=== PATIENT | female | born 1935 | race Caucasian/White ===

== ENCOUNTER 2017-03-16 16:15 | Inpatient (IN) | payer MEDICARE, BC ==
[~2017-03-16] VITALS: Ht 154.9 cm; Wt 71.1 kg
[~2017-03-16 16:15] MED LIST: BAYER CHEWABLE81 MG PO; BETAPACE 80 MG80 MG PO; BROMDAY1.7 ML RIGHT EYE; COLCRYS0.6 MG PO; CORDARONE200 MG PO; COUMADIN5 MG PO; ELIQUIS2.5 MG PO; ESTRACE1 MG PO; EXELON1 PATCH .1 TRANSDERM; K-DUR20 MEQ PO; K-TAB10 MEQ PO; LASIX20 MG PO; METOLAZONE2.5 MG PO; MYSOLINE 50 MG50 MG PO; PROTONIX40 MG PO; RESTORIL15 MG PO; STERAPRED DS 1210 MG PO; SYNTHROID50 MCG PO; SYNTHROID75 MCG PO; ULTRACET TABLET1 TAB PO; VITAMIN D31000 UNI2 PO; XANAX1 MG PO; ZESTORETIC 20-1 EACH PO; ZOLOFT25 MG PO; ZYLOPRIM100 MG; ZYLOPRIM300 MG PO
--- NOTE | 2017-03-16 16:41 | NUR ---
ARRIVE TO ROOM VIA WHEELCHAIR FROM 'S OFFICE ACCOMPANIED BY STAFF AND SPOUSE. ALERT AND ORIENTED X4. SPOUSE PULLS ASIDE TO INFORM OF PATIENT HAVING BEGINNING STAGES OF DEMENTIA. TRANSFER FROM WHEELCHAIR TO BED MAX ASSIST. GENERALIZED WEAKNESS. IV SITED LT FA 22G BY VASCULAR NURSE SUCCESSFUL X1 ATTEMPT. SCDs ON. CONTINUE ADMISSION PROCESS. DENIES SOB. CHRONIC BACK PAIN. BED LOCKED AND LOW. CALL LIGHT IN REACH. TWO SIDERAILS UP.
[2017-03-16] MEDS ORDERED: ZYLOPRIM300 MG PO (16:48)
[2017-03-16] MEDS ORDERED: PRINIVIL20 MG PO (16:48)
[2017-03-16] MEDS ORDERED: ZOLOFT50 MG PO (16:49)
[2017-03-16] MEDS ORDERED: VITAMIN B-121000 MCG PO (16:49)
[2017-03-16] MEDS ORDERED: VITAMIN D31000 UNI2 PO (16:50)
[2017-03-16] MEDS ORDERED: IPRATROPIUM BR42 MCG NASAL (16:50)
[2017-03-16] MEDS ORDERED: ULTRACET TABLET1 TAB PO (16:51)
[2017-03-16 18:13] VITALS: BP 183/53; BMI 23.3
[2017-03-16 20:00] VITALS: BP 169/63
--- NOTE | 2017-03-16 20:09 | NUR ---
RESUMED CARE OF PT, LYING IN BED WITH EYES CLOSED RESPIRATIONS EVEN AND UNLABORED ON ROOM AIR. LEFT FOREARM INFUSING NS @ KVO. CALL LIGHT IN REACH. NO NEEDS VOICED AT THIS TIME. WILL CONTINUE TO MONTIOR. SEE NURSE ASSESSMENT.
[2017-03-17] VITALS: BP 128/48
--- NOTE | 2017-03-17 04:32 | NUR ---
LYING IN BED RESPIRATIONS EVEN AND UNLABORED. BED ALARM ON. WILL CONTINUE TO MONTIOR.
[2017-03-17 05:50] LABS: BASOPHILS 0.3 % (0-2); EOSINOPHILS 1.9 % (0-7); HEMOGLOBIN 11.1 g/dL (12-16); IMMATURE GRANULOCYTES 0.4 % (0-5); LYMPHOCYTES 32.9 % (15-50); MCH 26.9 pg (26.0-34.0); MCHC 31.7 g/dL (31.0-37.0); MCV 84.7 fL (80.0-100.0); MEAN PLATELET VOLUME 10.4 fL (7.4-10.4); MONOCYTES 17.4 % (2-11); NEUTROPHILS 47.1 % (40-80); PLATELET COUNT 308 10x3/uL (130-400); RBC 4.13 10x6/uL (4.00-5.40); RDW 19.3 % (11.5-14.5); WBC 6.8 10x3/uL (4.8-10.8)
[2017-03-17 06:11] LABS: ANION GAP 17.3 mmol/L (8-16); CALCIUM 8.3 mg/dL (8.5-10.1); CARBON DIOXIDE 20.4 mmol/L (21.0-32.0); CREATININE - SERUM 1.4 mg/dL (0.6-1.3); POTASSIUM - SERUM 4.7 mmol/L (3.5-5.1)
--- NOTE | 2017-03-17 06:46 | NUR ---
NO CHANGES FROM PREVIOUS ASSESSMENT, CALL LIGHT IN REACH. WILL CONTINUE WITH PLAN OF CARE.
[2017-03-17 08:00] VITALS: BP 153/66
[2017-03-17 12:45] VITALS: Ht 154.9 cm; Wt 71.1 kg
[2017-03-17 13:02] LABS: APPEARANCE HAZY (CLEAR); BILIRUBIN NEGATIVE (NEGATIVE); COLOR YELLOW (YELLOW); GLUCOSE NEGATIVE (NEGATIVE); KETONE NEGATIVE (NEGATIVE); LEUKOCYTE ESTERASE 1+ (NEGATIVE); NITRITE NEGATIVE (NEGATIVE); PROTEIN 2+ mg/dL (NEGATIVE); UROBILINOGEN NORMAL (NORMAL)
[2017-03-17 13:03] LABS: BACTERIA MODERATE /hpf (NONE SEEN); RED CELLS - URINE 0-5 /hpf (0-5)
[2017-03-17 13:04] LABS: HYALINE CAST OCC /lpf (NONE SEEN); MUCUS <1+ /lpf (NONE SEEN)
[2017-03-17 13:26] VITALS: BP 174/53
[2017-03-17 16:00] VITALS: BP 109/73
--- NOTE | 2017-03-17 16:15 | NUR ---
Patient Name: JARRELL HARRELL Admission Status: Urgent Accout number: [id number] Admission Date: 03-17-2017 : 1935 Admission Diagnosis: Attending: TIMI Current LOS: 1 Anticipated DC Date: Planned Disposition: Inpatient Rehab Primary Insurance: MEDICARE A & B PLANNED EXTERNAL PROVIDER: [facility] Discharge Planning Comments: * Is the patient Alert and Oriented? No 0 * How many steps to enter\exit or inside your home? NONE 0 * PCP DR. HAIR 0 * Pharm[facility] * Preadmission Environment Home with Family 0 * Partial ADLs (Assistance needed) Medication Management 0 * Equipment Cane Other Rolling Walker 0 * Other Equipment BUILT IN SHOWER CHAIR [facility] OR [facility] 0 * List name and contact numbers for known caregivers / representatives who currently or will assist patient after discharge: DEIDRE MARIA, SPOUSE, 0 * Community resources currently utilized Home Health 0 * Please name any agencies selected above. [facility] 0 * Additional services required to return to the preadmission environment? No 0 * Can the patient safely return to the preadmission environment? Yes 0 * Has this patient been hospitalized within the prior 30 days at any hospital? No 0 CM RECEIVED ORDER FOR INPATIENT OR SKILLED REHAB PLACEMENT. CM MET WITH PT AND SPOUSE IN ROOM TO DISCUSS DISCHARGE PLANNING AND NEEDS. PT REPORTS LIVING AT HOME INDEPENDENTLY WITH HER SPOUSE. PT HAS A CANE, WALKER AND BUILT IN SHOWER CHAIR. PT'S SPOUSE IS LOOKING FOR CONTRACTOR OR PROVIDER TO INSTALL GRAB BARS IN THE SHOWER. PT HAS HOME HEALTH WITH [facility] FOR NURSING AND PHYSICAL THERAPY. CM DISCUSSED AVAILABILITY OF HOME HEALTH, REHAB SERVICES AND MEDICAL EQUIPMENT. PT INITALLY REPORTS SHE DOES NOT THINK SHE CAN TOLERATE THREE HOURS OF PROGRESSIVE THERAPY PER DAY BUT IS WILLING FOR REHAB SERVICES. PT'S SPOUSE THIKS PT CAN TOLERATE THREE HOURS OF PROGRESSIVE THERAPY PER DAY AND WOULD LIKE HER TO BE CONSIDERED FOR INPATIENT REHAB AT [facility], IF DENIED, HIS SECOND CHOICE IS [facility] FOR CUSTODIAL REHAB. SPOUSE TO PICK PT UP FOR DISCHARGE HOME AFTER REHAB. ORDER FOR INPATIENT REHAB PRESCREEN OBTAINED. CM FAXED REFERRAL TO [facility] FOR REHAB EVALUATION, . CM WAITING RESULTS OF INPATIENT REHAB PRESCREENING AND ADMISSION DETERMINATION FROM [facility]. Sales Contract Administrator: Umair Cosby
--- NOTE | 2017-03-17 17:03 | NUR ---
Rehab Note- Acute Rehab Prescreen order received. Spoke with the patient and her in the patient's room. The patient and are wanting to come to [facility] IRF unit when medically stable and ready for discharge from the acute hospital. Will follow the patient at this time. Thank you for this referral! Norah Adams RN Clinical Liaison, [facility] Rehab
--- NOTE | 2017-03-17 18:40 | NUR ---
ALERT AND ORIENTED X4. NO CHANGE. PREPARE SHIFT CHANGE REPORT. DENIES ANY NEEDS. CONTINUE PLAN OF CARE AND SAFETY PRECAUTIONS.
--- NOTE | 2017-03-17 19:25 | NUR ---
RECEIVED REPORT. PT ASKING FOR BED TO BE LOWERED AND LIGHT BE TURNED OFF, BED IS LOW, SRX2, CALL LIGHT IN REACH, WILL CONTINUE PLAN OF CARE
[2017-03-17 20:00] VITALS: BP 151/58
[2017-03-18 01:17] VITALS: BP 156/50
--- NOTE | 2017-03-18 02:57 | NUR ---
REST IN BED QUIETLY, EYE CLOSE, BED LOW, CALL LIGHT WITHIN REACH.
[2017-03-18 05:11] LABS: BASOPHILS 0.3 % (0-2); EOSINOPHILS 1.7 % (0-7); HEMATOCRIT 37.6 % (36.0-48.0); HEMOGLOBIN 12.1 g/dL (12-16); IMMATURE GRANULOCYTES 0.4 % (0-5); LYMPHOCYTES 30.7 % (15-50); MCH 27.6 pg (26.0-34.0); MCHC 32.2 g/dL (31.0-37.0); MCV 85.6 fL (80.0-100.0); MEAN PLATELET VOLUME 10.1 fL (7.4-10.4); MONOCYTES 15.4 % (2-11); NEUTROPHILS 51.5 % (40-80); PLATELET COUNT 327 10x3/uL (130-400); RBC 4.39 10x6/uL (4.00-5.40); RDW 19.5 % (11.5-14.5); WBC 6.9 10x3/uL (4.8-10.8)
[2017-03-18 05:40] LABS: ANION GAP 18.5 mmol/L (8-16); CALCIUM 8.5 mg/dL (8.5-10.1); CARBON DIOXIDE 20.8 mmol/L (21.0-32.0); CREATININE - SERUM 1.4 mg/dL (0.6-1.3); POTASSIUM - SERUM 4.3 mmol/L (3.5-5.1)
[2017-03-18 06:28] VITALS: BP 149/51
[2017-03-18 08:00] VITALS: BP 157/45
--- NOTE | 2017-03-18 10:33 | NUR ---
RECEIVED A CALL FROM KANNAN AT [facility]. SHE STATED THAT THEY WOULD BE SENDING SOMEONE OUT TO LOOK AT THE PATIENT AND THEN SHE WILL GET BACK ON ME TO WHETHER THEY CAN ACCEPT HER OR NOT.
--- NOTE | 2017-03-18 11:00 | NUR ---
ALERT AND ORIENTED X4. RESTING IN BED. VOMITING IN BAG. CALL FOR ZOFRAN ORDER. FAMILY AT BEDSIDE. LINEN AND SOILED GOWN CHANGE. ADMINISTER ZOFRAN 4MG IV ORDERED. DENIES SOB. INITIATE PAIN MANAGEMENT ORDERED. BED LOCKED AND LOW. CALL LIGHT IN REACH. TWO SIDERAILS UP. BED ALARM ON. CONTINUE PLAN OF CARE. NO SCDs. TAKES ELIQUIS.
--- NOTE | 2017-03-18 11:11 | NUR ---
RECEIVED CALL FROM [facility] IN INPATIENT REHAB. THE PATIENT HAS BEEN ACCEPTED WHEN THE DOCTOR IS READY TO SEND HER. SHE STATED THAT THEY COULD CONTINUE TO GIVE HER IV ANTIBIOTICS IN REHAB. INQUIRED ABOUT DISCHARGE PLAN. EXPLAINED I WOULD TALK WITH THE DOCTOR AND LET HER KNOW. CALL PLACED TO DR HAIR'S OFFICE. SPOKE WITH ANDREW DESOUZA. SHE WILL TALK IT OVER WITH DR HAIR AND CALL ME BACK. WILL AWAIT RETURN CALL.
--- NOTE | 2017-03-18 12:27 | NUR ---
RECEIVED RETURN CALL FROM LYLY AT DR HAIR'S OFFICE. PER HER, DR HAIR WANTS TO WAIT UNTIL PATIENTS CULTURE RESULTS ARE BACK BEFORE HE DISCHARGES TO REHAB. WE ARE LOOKING AT ANOTHER 2 DAYS OR SO. THIS HAS BEEN EXPLAINED TO THE PATIENT. RECEIVED CALL FROM [facility] IN INPATIENT REHAB. THE PATIENT HAS BEEN ACCEPTED
[2017-03-18 14:05] VITALS: BP 155/46
--- NOTE | 2017-03-18 14:24 | NUR ---
RECEIVED A CALL FROM KANNAN AT [facility], SHE STATED THE PATIENT HAS BEEN ACCEPTED.. EXPLAINED THAT THE PATIENT WAS ACCEPTED TO INPATIENT REHAB AND THEY WOULD LIKE TO GO THERE FIRST AND IF SHE CANNOT TOLERATE IT OR IF SHE NEEDS ADDITIONAL THERAPY AFTER INPATIENT, THE FAMILY WAS WANTING TO GO THERE. SHE STATED THAT WOULD BE FINE. THAT ALL WE WOULD NEED TO DO IS GET THEM AN UPDATE ON THE PATIENT. THANKED HER FOR HER TIME.
[2017-03-18 16:00] VITALS: BP 101/32
[2017-03-18] MEDS ORDERED: LEVOTHYROXINE75 MCG PO (16:24)
[2017-03-18 21:40] VITALS: BP 99/40
--- NOTE | 2017-03-19 01:09 | NUR ---
[place] AL[place] FLOORS INSTALLER AT BEDSIDE TO OBTAIN VITALS, CALL LIGHT IN REACH. WILL CONTINUE WITH PLAN OF CARE.
[2017-03-19 01:21] VITALS: BP 127/48
[2017-03-19 04:47] VITALS: BP 117/41
[2017-03-19 06:00] LABS: BASOPHILS 0.1 % (0-2); EOSINOPHILS 1.5 % (0-7); HEMATOCRIT 34.9 % (36.0-48.0); HEMOGLOBIN 11.1 g/dL (12-16); IMMATURE GRANULOCYTES 0.6 % (0-5); LYMPHOCYTES 29.4 % (15-50); MCH 27.1 pg (26.0-34.0); MCHC 31.8 g/dL (31.0-37.0); MCV 85.1 fL (80.0-100.0); MEAN PLATELET VOLUME 10.1 fL (7.4-10.4); MONOCYTES 17.5 % (2-11); NEUTROPHILS 50.9 % (40-80); PLATELET COUNT 277 10x3/uL (130-400); RDW 19.5 % (11.5-14.5)
[2017-03-19 06:16] LABS: ANION GAP 17.3 mmol/L (8-16); CALCIUM 7.9 mg/dL (8.5-10.1); CREATININE - SERUM 1.7 mg/dL (0.6-1.3); POTASSIUM - SERUM 4.3 mmol/L (3.5-5.1)
[2017-03-19 08:40] VITALS: BP 120/47
--- NOTE | 2017-03-19 14:29 | NUR ---
PATIENT HAS WALKED IN HALLWAY SOME WITH P.T. UP IN CHAIR.
[2017-03-19 14:32] VITALS: BP 121/41
--- NOTE | 2017-03-19 19:08 | NUR ---
PT RECEIEVED RESTING QUIETLY IN BED AAOX3. ASSESSMENT COMPLETED PER FLOW SHEET AT THIS TIME. PT REQUESTS ICE WATER AT THIS TIME. DENIES OTHER NEEDS. BED LOW. PHONE AND CALL LIGHT IN REACH. SRX2.
[2017-03-19 20:24] VITALS: BP 101/40
--- NOTE | 2017-03-19 22:34 | NUR ---
PM MEDS GIVEN AT THIS TIME. PT REQUESTS CRACKERS. DENIES OTHER NEEDS. BED LOW. PHONE AND CALL LIGHT IN REACH. SRX2.
--- NOTE | 2017-03-20 00:15 | NUR ---
PT RESTING QUIETLY AT THIS TIME WITH EYES CLOSED. AROUSED EASILY. DENIES NEEDS. BED LOW. PHONE AND CALL LIGHT IN REACH. SRX2.
[2017-03-20 01:28] VITALS: BP 128/62
--- NOTE | 2017-03-20 02:03 | NUR ---
PT RESTING QUIETLY AT THIS TIME WITH EYES CLOSED. RESPIRATIONS EVEN, NON-LABORED. NO ACUTE DISTRESS NOTED AT THIS TIME. BED LOW. PHONE AND CALL LIGHT IN REACH. SRX2.
[2017-03-20 04:34] VITALS: BP 104/45
--- NOTE | 2017-03-20 06:07 | NUR ---
PROTONIX AND SYNTHROID PO GIVEN AT THIS TIME. PT REQUESTS ICE WATER DENIES OTHER NEEDS. RATES PAIN 0/10. BED LOW. PHONE AND CALL LIGHT IN REACH. SRX2.
[2017-03-20 07:17] LABS: BASOPHILS 0.3 % (0-2); EOSINOPHILS 2.3 % (0-7); HEMATOCRIT 36.6 % (36.0-48.0); HEMOGLOBIN 11.4 g/dL (12-16); IMMATURE GRANULOCYTES 0.5 % (0-5); LYMPHOCYTES 23.1 % (15-50); MCHC 31.1 g/dL (31.0-37.0); MCV 86.5 fL (80.0-100.0); MEAN PLATELET VOLUME 10.1 fL (7.4-10.4); MONOCYTES 13.1 % (2-11); NEUTROPHILS 60.7 % (40-80); PLATELET COUNT 291 10x3/uL (130-400); RBC 4.23 10x6/uL (4.00-5.40); RDW 19.7 % (11.5-14.5); WBC 9.5 10x3/uL (4.8-10.8)
[2017-03-20 07:29] LABS: ANION GAP 15.8 mmol/L (8-16); CARBON DIOXIDE 20.8 mmol/L (21.0-32.0); CREATININE - SERUM 1.8 mg/dL (0.6-1.3); POTASSIUM - SERUM 4.6 mmol/L (3.5-5.1)
--- NOTE | 2017-03-20 07:51 | NUR ---
AM ROUNDING DONE WITH PATIENT HAVING SOME NAUSEA LAST SHIFT. DENIES NEEDS AT PRESENT TIME. AT BEDSIDE. ON HEART MONITOR SHOWING PACED, HR 60. BED ALARM IS IN USE. LEFT FA SEEN WITH NS INFUSING AT 75 CC/HR. WILL MONITOR.
[2017-03-20 08:00] VITALS: BP 143/50
--- NOTE | 2017-03-20 08:42 | NUR ---
PATIENT PLACED IN CONTACT ISOLATION FOR ESBL URINE. THIS IS EXPLAINED TO PATIENT AND SPOUSE. SPOUSE STATES THAT HE IS NOT GOING TO WEAR THE GOWN AND GLOVES. ASSESSMENT COMPLETE
[2017-03-20 12:00] VITALS: BP 113/44
--- NOTE | 2017-03-20 12:01 | NUR ---
COMPLAINTS OF SLIGHT NAUSEA, ZOFRAN GIVEN PER REQUEST. AT BEDSIDE. WHEN QUESTIONED HOW LONG THIS NAUSEA HAS BEEN GOING ON, STATES FOR APPROX. A WEEK BEFORE SHE CAME IN, THAT HE WOULD TAKE A BASKET WITH HER TO BED. THIS NAUSEA HERE STARTED YESTERDAY MORNING SHE STATES AFTER BREAKFAST OF RICE KRIPIES AND PANCAKES.
--- NOTE | 2017-03-20 13:51 | NUR ---
Nutrition follow-up: Diet: Regular with Ensure BID PO intake ~25% of meals Pt with nausea, vomiting today; generally not feeling well +BM Labs reviewed Wt: 136# RDN following.
--- NOTE | 2017-03-20 15:47 | NUR ---
DENIES NEEDS AT PRESENT TIME, WILL CONTINUE TO MONITOR.
--- NOTE | 2017-03-20 19:40 | NUR ---
PT RECEIEVED LYING IN BED RESTING QUIETLY AT THIS TIME AAOX3. ASSESSMENT COMPLETED PER FLOW SHEET. PT REQUESTS MEDICATION FOR C/O NAUSEA AND ICE WATER. DENIES OTHER NEEDS. BED LOW. PHONE AND CALL LIGHT IN REACH. SRX2.
[2017-03-20 19:41] VITALS: BP 123/49
--- NOTE | 2017-03-20 22:00 | NUR ---
ADMINISTERED BETAPACE AND ELEQUIS AT THIS TIME. PT BEGAN C/O NAUSEA AFTER TAKING MEDICINE SO DID NOT GIEN RESTORIL OR TRAMADOL, PT REQUESTS TO NOT TAKE THEM AT THIS TIME UNTIL NAUSEA PASSES. DENIES OTHER NEEDS. BED LOW. PHONE AND CALL LIGHT IN REACH. SRX2.
--- NOTE | 2017-03-20 23:44 | NUR ---
PT RESTING WELL WITHOUT C/O OR DISTRESS NOTED. NO CHANGES NOTED IN ASSESSMENT. CALL LIGHT WITHIN REACH. WILL CONT TO MONITOR.
--- NOTE | 2017-03-20 23:51 | NUR ---
PT RESTING QUIETLY WITH EYES CLOSED. AROUSED EASILY. PT REQUESTS LIGHTS BE TURNED OUT AT THIS TIME. DENIES OTHER NEEDS. BED LOW. PHONE AND CALL LIGHT IN REACH. SRX2.
[2017-03-21 00:59] VITALS: BP 115/45
--- NOTE | 2017-03-21 02:30 | NUR ---
PT RESTING QUIETLY AT THIS TIME WITH EYES CLOSED. AROUSED EASILY. ADMINISTERED ZOFRAN IVP FOR PT C/O NAUSEA AND TRAMADOL PO PER ORDERS FOR PAIN PT RATES 4/10. PT DENIES OTHER NEEDS. BED LOW. PHONE AND CALL LIGHT IN REACH. SRX2.
--- NOTE | 2017-03-21 04:15 | NUR ---
PT IN BED, WITH EYES CLOSED, BED LOW AND LOCKED, BED RAILS X2, CALL LIGHT IN REACH, NAD NOTED, WILL CONTINUE TO MONITOR.
--- NOTE | 2017-03-21 07:49 | NUR ---
IN CONTACT ISOLATION FOR ESBL IN URINE. ON ROOM AIR. DENIES ANY NAUSEA AT PRESENT TIME. ON HEART MONITOR SHOWING PACED, HR 60. PATIENT HAS A PACEMAKER. LEFT FA SEEN WITH D5NS INFUSING AT 75 CC/HR. BED ALARM IN USE. AT BEDSIDE. WILL MONITOR.
[2017-03-21 07:55] VITALS: BP 117/68
--- NOTE | 2017-03-21 09:36 | NUR ---
PATIENT TO SIT UP AND THEN THREW UP PART OF HER BREAKFAST. ZOFRAN GIVEN.
[2017-03-21 11:44] VITALS: BP 120/57
--- NOTE | 2017-03-21 12:14 | NUR ---
Rehab Note- Continue to follow the patient at this time. Had Infectious Disease consults. Antibiotics adjusted. Noted per Family Practice to plan for [facility] IRF transfer on Thursday. Will continue to follow at this time. Norah Adams RN Clinical Liaison, [facility] Rehab
--- NOTE | 2017-03-21 13:19 | NUR ---
SALTINE CRACKERS OFFERED PATIENT IS STILL NAUSEATED. UNABLE TO GIVE ZOFRAN AT THIS TIME.
[2017-03-21 16:00] VITALS: BP 105/72
--- NOTE | 2017-03-21 17:15 | NUR ---
ENCOURGED PATIENT TO FEED HERSELF, TAKING SMALL BITES OF CHICKEN SALAD. YOUNG COUPLE IN ROOM ALSO ENCOURAGING PATIENT. WILL CONTINUE TO FOLLOW.
--- NOTE | 2017-03-21 19:25 | NUR ---
AWAKE TALKING TO FAMILY PRESENT IN ROOM. DENIES PAIN OR ANY NEEDS. IN CONTACT ISOLATION. IV IN L FA INTACT WITH NS INFUSING AT 75ML/HR. RESTAURANT HOSTESS SHOWS 60 PACED. ORIENTED TO CALL LIGHT FOR ANY NEEDS.
--- NOTE | 2017-03-21 20:00 | NUR ---
REQUESTED ASSISTANCE TO BSC TO VOID. VERY WEAK AND TOOK ASSISTANCE X 2.
[2017-03-21 21:00] VITALS: BP 135/59
--- NOTE | 2017-03-21 21:40 | NUR ---
ADMIN SCHED MEDICATIONS WITH PUDDING AND SIPS OF WATER. STATED PILLS GET STUCK IN HER THROAT. SHE SWALLOWED THE PO MEDS WITHOUT DIFFICULTY.
--- NOTE | 2017-03-22 03:00 | NUR ---
RESTING WITH EYES CLOSED. AWAKENS EASILY. REFUSED SCHED MED FOR PAIN.
[2017-03-22 04:00] VITALS: BP 127/62; BP 130/64
[2017-03-22 05:28] LABS: BASOPHILS 0.2 % (0-2); EOSINOPHILS 3.4 % (0-7); HEMATOCRIT 32.9 % (36.0-48.0); HEMOGLOBIN 10.4 g/dL (12-16); IMMATURE GRANULOCYTES 0.5 % (0-5); LYMPHOCYTES 31.1 % (15-50); MCH 26.9 pg (26.0-34.0); MCHC 31.6 g/dL (31.0-37.0); MEAN PLATELET VOLUME 10.2 fL (7.4-10.4); NEUTROPHILS 47.8 % (40-80); PLATELET COUNT 279 10x3/uL (130-400); RBC 3.87 10x6/uL (4.00-5.40); RDW 19.9 % (11.5-14.5); WBC 8.5 10x3/uL (4.8-10.8)
[2017-03-22 05:46] LABS: ANION GAP 16.3 mmol/L (8-16); CALCIUM 7.7 mg/dL (8.5-10.1); POTASSIUM - SERUM 4.3 mmol/L (3.5-5.1)
--- NOTE | 2017-03-22 06:15 | NUR ---
ADMIN SCHED PO MEDS WITH PUDDING AND SIPS OF WATER. NO OTHER NEEDS VOICED.
[2017-03-22 08:00] VITALS: BP 128/52
--- NOTE | 2017-03-22 08:03 | NUR ---
0720-IN CONTACT ISOLATION, AT BEDSIDE. DENIES NEEDS OR NAUSEA AT PRESENT TIME. ON HEART MONITOR SHOWING PACED, HR 59. LEFT FA SEEN WITH D5NS INFUSING AT 75 CC/HR. BED ALARM IS SET. ON ELIQUIS.
[2017-03-22 11:45] VITALS: BP 113/47
[2017-03-22 15:56] VITALS: BP 123/50
--- NOTE | 2017-03-22 17:17 | NUR ---
IV INFILTRATING TO LEFT FOREARM BEFORE MEDICATIONS GIVEN. RE-SITED X 1 STICK WITH 22 G TO RIGHT INNER WRIST. OLD IV REMOVED WITH CATH TP INTACT. ZOFRAN GIVEN TO RIGHT INNER WIRST.
--- NOTE | 2017-03-22 19:33 | NUR ---
ALERT/AWAKE. DENIES PAIN OR ANY NEEDS. SHOWS 60 PACED ON PUBLIC TRANSIT SPECIALIST. IV IN RT WRIST WITH IVF INFUSING AT 75ML/HR. ORIENTED TO CALL LIGHT FOR ANY NEEDS. IN CONTACT ISOLATION FOR ESBL IN URINE.
--- NOTE | 2017-03-22 20:45 | NUR ---
ADMIN SCHED MEDS WITH SIPS OF WATER, SWALLOWING WITHOUT DIFFICULTY. RATES PAIN LEVEL "ALL OVER AT 6 ON NUMBER SCALE". ADMIN SCHED TRAMADOL. NO OTHER NEEDS VOICED. ALERT ENOUGH TO USE CALL LIGHT FOR ANY NEEDS.
[2017-03-22 21:30] VITALS: BP 108/50
--- NOTE | 2017-03-23 00:54 | NUR ---
ASSISTED DIRECTOR OF CREATIVE SERVICES PUTTING PATIENT BACK TO BED AFTER TAKING A STANDING WEIGHT. ADMIN ZOFRAN IV FOR C/O NAUSEA.
[2017-03-23 00:55] VITALS: BP 124/58
[2017-03-23 05:55] VITALS: BP 127/53
[2017-03-23] MEDS ORDERED: AMPICILLIN IV (07:31)
[2017-03-23 08:00] VITALS: BP 131/51
--- NOTE | 2017-03-23 10:58 | NUR ---
Patient Name: JARRELL HARRELL Encounter No: [id number] : 1935 Primary Insurance: MEDICARE A & B Anticipated DC Date: 03-23-2017 Planned Disposition: Inpatient Rehab External Planned Provider: [facility] INPATIENT REHAB DCP follow-up note: CM SPOKE TO [facility] OF INPATIENT REHAB, THEY PLAN TO ACCEPT PT TODAY FOR REHAB. PT AND SPOUSE NOTIFIED, IN AGREEMENT WITH DISCHARGE TO INPATIENT REHAB. IMPORTANT MESSAGE FROM MEDICARE PROVIDED AND EXPLAINED. [facility] INPATIENT REHAB TO CONTACT MED 2 NURSE WITH ROOM NUMBER WHEN READY TO ACCEPT PT AND NURSE REPORT. Umair Cosby, CASE MANAGEMENT
[2017-03-23 11:48] VITALS: BP 119/52
--- NOTE | 2017-03-23 12:51 | NUR ---
THIS AM PATIENT HAS BEEN UP TO BS. NO APPARENT DISTRESS. FAMILY WITH PT. NO APPARENT DISTRESS.
--- NOTE | 2017-03-23 13:06 | NUR ---
REPORT CALLED TO Brian RODRIGUEZ RN. IN REHAB.
--- NOTE | 2017-03-23 13:25 | NUR ---
TO REHAB VIA WC
== END 2017-03-23 13:28 | DRG 690 ==
LOC: D.M2 16:15 → OBSVTIME 17:00 → D.M2 03-17 11:19
PROVIDERS: Family Medicine; ADMIT Family Medicine
DX: N39.0 Urinary tract infection, site not specified (principal); R41.0 Disorientation, unspecified; I48.91 Unspecified atrial fibrillation; F32.9 Major depressive disorder, single episode, unspecified; F41.9 Anxiety disorder, unspecified; F03.90 Unspecified dementia, unspecified severity, without behavioral disturbance, psychotic disturbance, mood disturbance, and anxiety; I12.9 Hypertensive chronic kidney disease with stage 1 through stage 4 chronic kidney disease, or unspecified chronic kidney disease; N18.3 Chronic kidney disease, stage 3 (moderate); B96.1 Klebsiella pneumoniae [K. pneumoniae] as the cause of diseases classified elsewhere; B95.2 Enterococcus as the cause of diseases classified elsewhere; Z95.0 Presence of cardiac pacemaker; Z86.73 Personal history of transient ischemic attack (TIA), and cerebral infarction without residual deficits

== ENCOUNTER 2017-03-23 14:54 | Inpatient (IN) | payer MEDICARE, BC ==
[~2017-03-23] VITALS: Ht 154.9 cm; Wt 71.7 kg
[~2017-03-23 14:54] MED LIST changes: +AMPICILLIN IV; +IPRATROPIUM BR42 MCG NASAL; +LEVOTHYROXINE75 MCG PO; +PRINIVIL20 MG PO; +VITAMIN B-121000 MCG PO; +ZOLOFT50 MG PO
[2017-03-23 15:07] VITALS: BP 111/44; BMI 29.5
[2017-03-23 19:00] VITALS: BP 118/66
--- NOTE | 2017-03-23 20:00 | NUR ---
PT IN BED WITH HOB UP FOR COMFORT. TALKING ON CELLPHONE. CONTACT ISOLATION FOR ESBO IN URINE. PACEMKAER. TELEMETRY. BED IN LOWEST POSITION AND CALL LIGHT WITHIN REACH.
--- NOTE | 2017-03-24 | NUR ---
PT IN BED WITH HOB UP FOR COMFORT. EYES CLOSED. CHEST RISING AND FALLING. BED IN LOWEST POSITION AND CALL LIGHT WITHIN REACH.
--- NOTE | 2017-03-24 03:20 | NUR ---
PT RESTING QUIETLY, NO S/S OF ACUTE DISTRESS. HOB ELEVATED
--- NOTE | 2017-03-24 04:00 | NUR ---
PT LYING IN BED. EYES CLOSED. RESPIRATIONS EVEN AND UNLABORED. BED IN LOWEST POSITION AND CALL LIGHT WITHIN REACH.
--- NOTE | 2017-03-24 06:30 | NUR ---
WHILE ASSISTING PT WITH MAX ASSIT TRANSFER IT APPEARED PT'S SALINE LOCK WAS BUMPED ON W/C AND BLEED. BLEEDING STOPPED WITH REMOVAL OF SALINE LOC. PRESSURE APPLIED.
[2017-03-24 07:52] LABS: ANION GAP 19.4 mmol/L (8-16); CALCIUM 7.9 mg/dL (8.5-10.1); CREATININE - SERUM 1.9 mg/dL (0.6-1.3); POTASSIUM - SERUM 4.4 mmol/L (3.5-5.1)
[2017-03-24 08:53] LABS: BASOPHILS 0.2 % (0-2); EOSINOPHILS 3.7 % (0-7); HEMATOCRIT 35.3 % (36.0-48.0); HEMOGLOBIN 11.2 g/dL (12-16); IMMATURE GRANULOCYTES 0.5 % (0-5); LYMPHOCYTES 31.3 % (15-50); MCH 27.1 pg (26.0-34.0); MCHC 31.7 g/dL (31.0-37.0); MCV 85.3 fL (80.0-100.0); MEAN PLATELET VOLUME 10.1 fL (7.4-10.4); MONOCYTES 14.5 % (2-11); NEUTROPHILS 49.8 % (40-80); PLATELET COUNT 256 10x3/uL (130-400); RBC 4.14 10x6/uL (4.00-5.40); RDW 20.2 % (11.5-14.5); WBC 8.4 10x3/uL (4.8-10.8)
--- NOTE | 2017-03-24 11:32 | NUR ---
PATIENT ADMITTED TO REHAB FROM ACUTE FLOOR. DISCHARGE PALSN ARE FOR PATIENT TO RETURN HOME BUT IF UNABLE TO SHE WOULD LIKE REFERRAL TO [facility] NUR[facility]AB. DR. HAIR IS HER PCP, [facility] IS HER [facility] AT HOME. DME SHE HAS AT HOME, IS CANE, WALKER AND SHE HAS A BULIT IN SHOWER CHAIR. [facility] AT HOME IS HER HOME HEALTH OF CHOICE. WILL CONTINUE TO FOLLOW WITH PATIENT
[2017-03-24 12:42] VITALS: Ht 154.9 cm; Wt 71.7 kg
[2017-03-24 12:44] VITALS: BP 133/46
--- NOTE | 2017-03-24 19:34 | NUR ---
SITTING UP IN BED RESTING QUIETLY CALL LIGHT IN REACH
--- NOTE | 2017-03-24 19:40 | NUR ---
PT. IN CONTACT ISOLATION FOR HER URINE BEING POSITION FOR ESBO. PT. IN BED WITH HOB UP FOR COMFORT. LE'S ELEVATED UP ON PILLOWS. ASSESSMENT COMPLETED. NO VOICED NEEDS AT THIS TIME AND SHE HAS HER CALL LIGHT WITHIN REACH.
[2017-03-24 20:15] VITALS: BP 137/52
--- NOTE | 2017-03-24 23:05 | NUR ---
PT. IN BED WITH HOB UP FOR COMFORT AND BLE'S ELEVATED UP ON PILLOWS ALSO. EYES CLOSED AND RESP. EVEN. CALL LIGHT WITHIN REACH.
--- NOTE | 2017-03-25 03:00 | NUR ---
PT. IN BED WITH HOB UP FOR COMFORT WITH EYES CLOSED AND RESP. DEEP AND EVEN. LE'S ELEVATED UP ON PILLOWS TO HELP WITH EDEMA. CALL LIGHT WITHIN REACH.
--- NOTE | 2017-03-25 06:09 | NUR ---
PT. IN BED WITH HOB UP FOR COMFORT WITH EYES CLOSED AND RESP. EVEN. PT. AWAKENED EASILY/SLOWLY FOR AM MEDS. NO VOICED NEEDS AT THIS TIME AND PT. SAID HER PAIN MED WAS STILL WORKING ON HER BACK PAIN. CALL LIGHT REMAINS WITHIN REACH.
[2017-03-25 07:28] LABS: BASOPHILS 0.2 % (0-2); EOSINOPHILS 2.6 % (0-7); HEMATOCRIT 32.1 % (36.0-48.0); HEMOGLOBIN 10.3 g/dL (12-16); IMMATURE GRANULOCYTES 0.7 % (0-5); LYMPHOCYTES 26.5 % (15-50); MCHC 32.1 g/dL (31.0-37.0); MEAN PLATELET VOLUME 9.3 fL (7.4-10.4); MONOCYTES 14.5 % (2-11); NEUTROPHILS 55.5 % (40-80); PLATELET COUNT 276 10x3/uL (130-400); RBC 3.82 10x6/uL (4.00-5.40); RDW 20.3 % (11.5-14.5); WBC 8.3 10x3/uL (4.8-10.8)
[2017-03-25 07:48] LABS: ANION GAP 15.6 mmol/L (8-16); CALCIUM 8.2 mg/dL (8.5-10.1); CARBON DIOXIDE 17.1 mmol/L (21.0-32.0); POTASSIUM - SERUM 4.7 mmol/L (3.5-5.1)
--- NOTE | 2017-03-25 08:00 | NUR ---
SHIFT ASSMT COMPLETED.
--- NOTE | 2017-03-25 13:30 | NUR ---
DRSG CHANGED TO RIGHT LEG FROM WEEPING A LARGE AMT OF SEROSANG FLD.PLACED 10PK 4X4'S,ABD'S AND WRAPPED WITH HERMELINDO.TETO WELL.
--- NOTE | 2017-03-25 15:30 | NUR ---
RESTING QUIETLY IN BED,DRAINGE TO RIGHT LEG GREATLY REDUCED IN AMT WITH LYING DOWN WITH FEET ELAVATED AND HEELS FLOATING OFF PILLOWS.
[2017-03-25 19:45] VITALS: BP 126/64
--- NOTE | 2017-03-25 19:45 | NUR ---
ASSESSMENT PER FLOW SHEET, VS OBAINED, PT UP TO WC WITH ASSISTANCE, VERY UNDSTEADY, PT TO COMMODE, VOIDED BY SELF WITH O DIFFICULTY, PT BACK TO BED, BED IN LOW POSITION, SIDE RAILS X 2, CALL LIGHT IN REACH
--- NOTE | 2017-03-25 20:30 | NUR ---
PT RESTING WITH EYES CLOSED, RESP QUIET, NO DISTRESS NOTED, LEFT UNDISTURBED AT THIS TIME
--- NOTE | 2017-03-25 21:38 | NUR ---
PT RESTING WITH EYES CLOSED, AROUSES TO SOFT VERBAL STIMULATION, ADM MED IN APPLESAUCE, PT HAD SMALL SIP OF H20, PT DENIES NEEDS AT THIS TIME, BED IN LOW POSITION, SIDE RAILS X 2, CALL LIGHT IN REACH
--- NOTE | 2017-03-25 22:40 | NUR ---
PT FOUNDRY ENGINEER LIGHT, PT UP TO BR WITH ASSISTANCE VIA WC, VOIDED BY SELF WITH NO DIFFICULTY, PT BACK TO BED, CUP OF ICE SERVED, PT DENIES FURTHER NEEDS OR PAIN, BED IN LOW POSITION, SIDE RAILS X 2, CALL LIGHT IN REACH
--- NOTE | 2017-03-26 | NUR ---
PT RESTING WITH EYES CLOSED, RESP QUIET, NO DISTRESS NOTED, LEFT UNDISTURBED AT THIS TIME
--- NOTE | 2017-03-26 01:48 | NUR ---
PT RESTNG WITH EYES CLOSED, AROUSES TO SOFT VERBAL STIMULATION, ADM 0000 MED PO IN APPLESAUCE, PER MD ORDERS, SEE EMAR, PT DENIES NEEDS OR PAIN, BED IN LOW POSITION, SIDE RAILS X 2, CALL LIGHT IN REACH, BED ALARM CONTINUE WORKING PROPERLY
--- NOTE | 2017-03-26 03:15 | NUR ---
PT RESTING WITH EYES CLOSED, RESP QUIET, NO DISTRESS NOTED, LEFT UNDISTURBED AT THIS TIME
--- NOTE | 2017-03-26 06:07 | NUR ---
PT DRILLING PLANT OPERATOR LIGHT, PT UP TO BR VIA WC, PT VERY UNSTEADY, PT VOIDED BY SELF WITH NO DIFFICULTY, ADULT GARMENT CHANGED, ATTEMPT TO WEIGH PT WITH NO SUCCESS, PT BACK TO BED, ADM 0600 MEDS PER MD ORDERS, SEE EMAR, PT REQUESTED AND SERVED ICE CHIP, DENIES FURTHER NEEDS
[2017-03-26 06:53] LABS: ALBUMIN 2.1 g/dL (3.4-5.0); ANION GAP 18.6 mmol/L (8-16); CALCIUM 8.2 mg/dL (8.5-10.1); CARBON DIOXIDE 15.8 mmol/L (21.0-32.0); CREATININE - SERUM 1.9 mg/dL (0.6-1.3); POTASSIUM - SERUM 4.4 mmol/L (3.5-5.1); PRE-ALBUMIN 9.6 mg/dL (18.0-35.7); THYROID STIMULATING HORMONE 2.41 uIU/mL (0.36-3.74)
--- NOTE | 2017-03-26 06:59 | NUR ---
SHIFT REPORT TO DAY SHIFT
--- NOTE | 2017-03-26 08:00 | NUR ---
SHIFT ASSMT COMPLETED.UP OOB TO WC FOR BREAKFAST.
--- NOTE | 2017-03-26 08:56 | RHP ---
PATIENT: JARRELL HARRELL MEDICAL RECORD: [id number] ACCOUNT: [id number] LOCATION:[id number] : [birth year] ADMISSION DATE: 03/23/17 REHABILITATION HISTORY AND PHYSICAL EXAMINATION POST ADMISSION PHYSICIAN EXAMINATION Post-admission Physical Examination and History and Physical DATE OF ADMISSION: 03/23/2017. ADMITTING DIAGNOSIS: Debility secondary to frequent falls and urinary tract infection, Gram-negative rods and Gram-positive cocci. HISTORY OF PRESENT ILLNESS: The patient is admitted to the inpatient rehab with debility and fatigue and frequent falls secondary to UTI. She had Gram-negative rods and Gram-positive cocci including enterococcus and MDR Klebsiella. She is an 81-year-old female patient with UTI that was untreated. She had increasing confusion. The patient was refusing to take oral antibiotics at home. She became increasingly weak and confused according to her . She was able to ambulate with a rolling walker extended distances. Prior to getting sick, she was able to perform her own ADLs and use a shower bench for bathing. She is currently set up for moderate assist for her ADLs and moderate assist to total assist for mobility. She lives at home with her and plans to return home back to her prior level of functioning or better. COMORBIDITIES: In this patient include AFib, UTI, fatigue, dementia, frequent falls, debility and chronic back pain. PAST MEDICAL HISTORY: Significant for TIA, mild cognitive impairment, thyroid problems, hypertension, AFib. She requires BiPAP. She has shortness of breath at times. Has a history of RA, depression and anxiety. PAST SURGICAL HISTORY: Includes gallbladder surgery, hysterectomy and nephrectomy, right renal bypass, right mastectomy and reconstruction, pacemaker placement, splenectomy and back surgery. ALLERGIES: MEPERIDINE. CURRENT MEDICATIONS: Include Zoloft 100 mg daily. She is on an Exelon patch 9.5 mg daily. She is on potassium 20 mEq daily, Protonix 40 mg daily, Synthroid 75 mcg daily, estradiol 1 mg daily, vitamin B12 1000 mcg daily, vitamin D 1000 units daily, allopurinol 300 mg daily, Zofran 4 mg q.4 hours p.r.n., Ultracet 1 tab q.4 hours p.r.n. pain, restoril 30 mg at bedtime, sotalol 80 mg b.i.d., Mysoline 50 mg at bedtime, lisinopril 20 mg b.i.d., Atrovent 2 sprays t.i.d., Eliquis 2.5 mg b.i.d. She is on Omnicef and I am going to change this over to oral medication and she is on polyethylene glycol 17 grams in 8 ounces of water daily. HABITS: No alcohol or tobacco use. FAMILY HISTORY: Noncontributory. SOCIAL HISTORY: The patient hopes to return back home with her and get back to her prior level of functioning or better. HISTORY AND PHYSICAL [id number] JARRELL HARRELL REVIEW OF SYSTEMS: GENERAL: Does complain of weakness. HEENT: Denies cold, cough, or congestion. CARDIOVASCULAR: Denies chest pain. PHYSICAL EXAMINATION: VITAL SIGNS: Stable, afebrile. GENERAL: A well-developed elderly female in no acute distress, alert upon exam. HEENT: Normocephalic, atraumatic. Mucosa moist. NECK: Supple, with no lymphadenopathy. LUNGS: Clear at this time. HEART: Irregular rate and rhythm. ABDOMEN: Benign. EXTREMITIES: No clubbing, cyanosis or edema. NEUROLOGIC: Consistent with some mild cognitive impairment. LABORATORY DATA: Her white count is 8.4, H&H of 11 and 35, and platelet count is 256. Her sodium is 134, potassium 4.4, BUN and creatinine of 33 and 1.9, and blood sugar is noted to be 78. ASSESSMENT: This is an 81-year-old female patient admitted to rehab with a working diagnosis of debility. The patient has potential to make improvement. We instituted the following multidisciplinary therapies including to, but not limited to physical, occupational, respiratory, speech, nutritional services, prosthetics and orthotics. Given her complex condition and risk for more complications, rehabilitation services cannot be provided at a lower level of care such as a fci facility. PLAN: 1. Admit to [facility] rehab for intensive inpatient therapy to include the following disciplines: A. Physical therapy to improve gait, all transfer skills and bed mobility to a modified independent level. B. Occupational therapy to improve activities of daily living to a modified independent level. C. Case management to assist with discharge planning and placement options. D. Nutrition to assist with nutritional needs. E. Rehabilitation nursing to assist in monitoring the patient's underlying medical conditions and to assist with any type of bowel or bladder management. 2. The patient's current medications and medical care will be continued. 3. The patient will be placed on standard fall precautions. 4. The patient's estimated length of stay is approximately 7-10 days. 5. We will monitor UTI closely. We will continue on ampicillin as prescribed and will discuss with the care team tomorrow. TRANSINT:[id number] Voice Confirmation ID: [id number] DOCUMENT ID: [id number] SHEREEN notes whether there has been none or any medical/functional change since admission: - No change. SHEREEN attests patient continues to be appropriate for IRF: - Remains appropriate for IRF stay. HISTORY AND PHYSICAL [id number] JARRELL HARRELL SCOTT MD at 0856 CC: [id number] DICTATION DATE: 03/24/17 1050 OFFICE CLERK: 03/24/17 1149 ADM IN [place] [id number] [place] [id number]
[2017-03-26 09:13] VITALS: BP 132/57
--- NOTE | 2017-03-26 16:00 | NUR ---
RESTING QUIETLY IN BED. AT BEDSIDE.
[2017-03-26 19:30] VITALS: BP 117/45
--- NOTE | 2017-03-26 19:30 | NUR ---
PT. IN BED WITH HOB UP FOR COMFORT LYING ON HER RIGHT SIDE WITH EYES CLOSED AND RESP. EVEN. PT. AWAKENED EASILY FOR ASSESSMENT. ASSISTED PT. TO BR AND URINE WAS COLLECTED FOR UA. ASSISTED PT. BACK TO BED, POSITIONED TO COMFORT AND SCD'S PLACED. INFORMED PT. THAT RADIOLOGY STAFF WILL COME AND TAKE HER FOR HER XRAY WHEN THEY CAN. PT. STATED SHE UNDERSTOOD. CALL LIGHT WITHIN REACH.
--- NOTE | 2017-03-26 19:30 | NUR ---
PT. IN BED WITH HOB UP FOR COMFORT AND RLE ELEVATED UP ON PILLOW DUE TO WEEPING EDEMA. PT. AWAKENS EASILY FOR ASSESSMENT. NO VOICED NEEDS AT THIS TIME AND HER CALL LIGHT IS WITHIN REACH.
--- NOTE | 2017-03-26 23:12 | NUR ---
PT. IN BED LYING ON HER LEFT SIDE WITH HOB UP FOR COMFORT. RLE ELEVATED UP ON PILLOW. EYES CLOSED AND RESP. DEEP AND EVEN. CALL LIGHT REMAINS WITHIN REACH.
--- NOTE | 2017-03-27 03:01 | NUR ---
PT. IN BED WITH HOB UP FOR COMFORT WITH EYES CLOSED AND RESP. DEEP AND EVEN. CALL LIGHT WITHIN REACH.
[2017-03-27 07:13] LABS: BASOPHILS 0.2 % (0-2); EOSINOPHILS 2.5 % (0-7); HEMATOCRIT 32.7 % (36.0-48.0); HEMOGLOBIN 10.6 g/dL (12-16); IMMATURE GRANULOCYTES 0.3 % (0-5); MCH 26.8 pg (26.0-34.0); MCHC 32.4 g/dL (31.0-37.0); MCV 82.8 fL (80.0-100.0); MEAN PLATELET VOLUME 10.2 fL (7.4-10.4); MONOCYTES 11.3 % (2-11); NEUTROPHILS 59.7 % (40-80); PLATELET COUNT 310 10x3/uL (130-400); RBC 3.95 10x6/uL (4.00-5.40); RDW 20.5 % (11.5-14.5); WBC 9.7 10x3/uL (4.8-10.8)
--- NOTE | 2017-03-27 07:30 | NUR ---
RESTING QUIETLY IN BED CALL LIGHT IN REACH
--- NOTE | 2017-03-27 07:31 | NUR ---
RESTING QUIETLY IN BED CALL LIGHT IN REACH
[2017-03-27 07:45] LABS: ANION GAP 17.9 mmol/L (8-16); CALCIUM 7.8 mg/dL (8.5-10.1); CARBON DIOXIDE 16.2 mmol/L (21.0-32.0); CREATININE - SERUM 1.8 mg/dL (0.6-1.3); POTASSIUM - SERUM 4.1 mmol/L (3.5-5.1)
[2017-03-27 07:56] LABS: % SATURATION 7 % (15-55); IRON 20 ug/dl (35-150); TOTAL IRON BIND CAPACITY 270 ug/dl (260-445); UNSAT IRON BIND CAPACITY 250 ug/dl (150-375)
[2017-03-27 08:00] VITALS: BP 137/77
--- NOTE | 2017-03-27 08:00 | NUR ---
PATIENT SITTING UP IN WHEELCHAIR TO EAT BREAKFAST. IN ROOM WITH PATIENT. PATIENT ALERT/ORIENTX4. BILATERAL LEGS WEEPING. 4+ EDEMA. CALL LIGHT WITHIN REACH.
--- NOTE | 2017-03-27 10:00 | NUR ---
PATIENT IN REHAB ROOM. WORKING WITH PHYSICAL THERAPIST. C/O NAUSEA. PRN ZOFRAN GIVEN.
--- NOTE | 2017-03-27 10:49 | NUR ---
PATIENT TALKED WITH LEDY BAGLEY. STATED HE WANTED HIS TRANSFERED UPSTAIRS. STATED THAT SHE IS TOO WEAK TO WORK WITH PT, OR OT THERAPY.
--- NOTE | 2017-03-27 10:51 | NUR ---
DR. Joaquin MACE PAGED DUE TO HUSBANDS REQUEST TO SEND PATIENT TO A MORE ACUTE UNIT
[2017-03-27] MEDS ORDERED: MEGACE 20 MG TA20 MG PO (11:02)
[2017-03-27] MEDS ORDERED: MEGACE400 MG/10 PO (11:03)
[2017-03-27] MEDS ORDERED: NIFEREX-150 CAP1 CA3 PO (11:04)
[2017-03-27] MEDS ORDERED: FUROSEMIDE20 MG PO (11:05)
[2017-03-27] MEDS ORDERED: ZOLOFT100 MG PO (11:05)
[2017-03-27] MEDS ORDERED: IPRATROPIUM BR21 MCG NASAL (11:06)
[2017-03-27] MEDS ORDERED: FLORAJEN3 CAPS460 MG PO (11:07)
[2017-03-27] MEDS ORDERED: ZOFRAN4 MG PO (11:07)
[2017-03-27] MEDS ORDERED: MIRALAX17 GM PO (11:08)
--- NOTE | 2017-03-27 11:15 | NUR ---
DUE TO CHANGE IN MEDICAL CONDITION PATIENT DISCHARGED FROM REHAB AND ADMITTED TO ACUTE FLOOR.
--- NOTE | 2017-03-27 12:04 | NUR ---
DR. Joaquin MACE RETURNED PAGE. NEW ORDERS RECEIVED TO DISCHARGE PATIENT TO ACUTE CARE UNIT. HOUSE SUPERVISIOR CALLED.
--- NOTE | 2017-03-27 13:32 | NUR ---
SUPERVISIOR CALLED WITH ROOM 2135.
--- NOTE | 2017-03-27 15:18 | NUR ---
REPORT GIVEN TO KYLEIGH PLASCENCIA ON MED SURG II. PATIENT TO BE DISCHARGED TO ROOM 2135. NITZA IN ROOM. FOLLOWED PATIENT TO NEW ROOM.
== END 2017-03-27 15:19 | disposition short-term general hospital (02) | DRG 948 ==
LOC: D.REHAB 14:54
PROVIDERS: ADMIT Emergency Medicine
DX: R53.81 Other malaise (principal); N39.0 Urinary tract infection, site not specified; B96.89 Other specified bacterial agents as the cause of diseases classified elsewhere; I48.91 Unspecified atrial fibrillation; R53.83 Other fatigue; F03.90 Unspecified dementia, unspecified severity, without behavioral disturbance, psychotic disturbance, mood disturbance, and anxiety; G89.29 Other chronic pain; Z91.81 History of falling; B96.1 Klebsiella pneumoniae [K. pneumoniae] as the cause of diseases classified elsewhere; B95.2 Enterococcus as the cause of diseases classified elsewhere

== ENCOUNTER 2017-03-27 15:16 | Inpatient (IN) | payer MEDICARE, BC ==
[~2017-03-27] VITALS: Ht 154.9 cm; Wt 75.7 kg
--- NOTE | 2017-03-27 15:00 | NUR ---
PT RECEIVED TO ROOM 2135 VIA WHEELCHAIR, X2 TO TRANSFERED PT TO BED, PT WITH GENERALIZED WEAKNESS. PT ORIENTED TO ROOM AND CALL LIGHT, DRESSING NOTED TO RT LEG. PLACED ON CONTACT ISOLATION FOR KPEF IN THE URINE. PT DENIES ANY NEEDS AT THIS TIME. CALL LIGHT IN REACH, DAUGTHER AT BEDSIDE, NAD NOTED, WILL CONTINUE TO MONITOR.
[~2017-03-27 15:16] MED LIST changes: +FLORAJEN3 CAPS460 MG PO; +FUROSEMIDE20 MG PO; +IPRATROPIUM BR21 MCG NASAL; +MEGACE 20 MG TA20 MG PO; +MEGACE400 MG/10 PO; +MIRALAX17 GM PO; +NIFEREX-150 CAP1 CA3 PO; +ZOFRAN4 MG PO; +ZOLOFT100 MG PO
[2017-03-27 16:00] VITALS: BP 112/39
[2017-03-27 16:11] VITALS: BMI 29.7
--- NOTE | 2017-03-27 17:00 | NUR ---
NEW DRESSING APPLIED TO RT LEG BY FADI PLASCENCIA.
[2017-03-27 19:00] VITALS: BP 142/47
--- NOTE | 2017-03-27 20:13 | NUR ---
DAUGHTER AT BEDSIDE, DAUGHTER EXPRESSED CONCERN RELATED TO MEDICATIONS AND ANTIBIOTICS. C/O PAIN IN BACK.
[2017-03-28] VITALS: BP 123/50
--- NOTE | 2017-03-28 01:55 | NUR ---
DAUGHTER REQUESTING SOMETHING FOR MOTHER TO SLEEP. STATES SHE TAKES SOMETHING AT HOME AND HASN'T BEEN ABLE TO SLEEP YET. WILL PASS ON TO DAY SHIFT.
--- NOTE | 2017-03-28 02:23 | NUR ---
PT HAS EYES CLOSED, RESPIRATIONS REGULAR AND UNLABORED, IVPB FLUSHED, LEFT CONNECTED NOT TO INTERRUPT SLEEP.
--- NOTE | 2017-03-28 03:04 | NUR ---
PT RESTING QUIETLY, NO S/S OF ACUTE DISTRESS. DAUGHTER IN ROOM.
[2017-03-28 04:00] VITALS: BP 124/48
[2017-03-28 06:42] LABS: BASOPHILS 0.1 % (0-2); EOSINOPHILS 1.2 % (0-7); HEMATOCRIT 30.8 % (36.0-48.0); HEMOGLOBIN 10.1 g/dL (12-16); IMMATURE GRANULOCYTES 0.3 % (0-5); LYMPHOCYTES 18.7 % (15-50); MCH 26.6 pg (26.0-34.0); MCHC 32.8 g/dL (31.0-37.0); MCV 81.3 fL (80.0-100.0); MONOCYTES 15.6 % (2-11); NEUTROPHILS 64.1 % (40-80); PLATELET COUNT 274 10x3/uL (130-400); RBC 3.79 10x6/uL (4.00-5.40); RDW 19.9 % (11.5-14.5)
[2017-03-28 06:43] LABS: WBC 12.7 10x3/uL (4.8-10.8)
--- NOTE | 2017-03-28 06:50 | NUR ---
CONTACT ISOLATIONS, DAUGHTER IN ROOM, PT VOID PER BEDPAN.
[2017-03-28 07:05] LABS: ALBUMIN 1.9 g/dL (3.4-5.0); ANION GAP 16.7 mmol/L (8-16); BILIRUBIN - TOTAL 1.1 mg/dL (0.2-1.3); CALCIUM 7.7 mg/dL (8.5-10.1); CARBON DIOXIDE 17.4 mmol/L (21.0-32.0); CREATININE - SERUM 1.8 mg/dL (0.6-1.3); PROTEIN - SERUM 5.8 g/dL (6.4-8.2)
[2017-03-28 07:08] LABS: POTASSIUM - SERUM 4.1 mmol/L (3.5-5.1)
[2017-03-28 08:00] VITALS: BP 129/46
--- NOTE | 2017-03-28 08:20 | NUR ---
ASSESSMENT DONE. DENIES NEEDS.
--- NOTE | 2017-03-28 10:15 | NUR ---
RESTS IN BED WITH EYES CLOSED. ISOLATION PRECAUTIONS CONT. IV PATENTR. CALL LIGHT IN REACH. WILL CONT. PLAN OF CARE.
[2017-03-28 12:00] VITALS: BP 144/62
[2017-03-28 16:00] VITALS: BP 152/61
--- NOTE | 2017-03-28 17:43 | NUR ---
WITHOUT CHANGES OR DISTRESS NOTED AT THIS TIME. DENIES NEEDS.
[2017-03-28 19:00] VITALS: BP 139/53
--- NOTE | 2017-03-28 19:30 | NUR ---
PT IN BED RESTING. ASKED FOR ICE CHIPS, GOT PT FRESH ICE. NOTICIED PT IV SITE STARTED BLEEDING AGAIN AND SOAKED THRU COVERS. CHANGED ALL BED LINEN. ICE CHIPS IN REACH WITH C/L IN REACH. WILL MONITOR.
[2017-03-29] VITALS: BP 111/43
[2017-03-29 08:00] VITALS: BP 137/45
--- NOTE | 2017-03-29 08:42 | NUR ---
INTRODUCED MYSELF TO PT PRIMARY RN FOR TODAYS SHIFT. PT RESTING COMFORTABLY IN BED SHE STATES AND SAID SHE HAD A GOOD NIGHT AND DENIES ANY PAIN OTHER THAN HER LEGS FROM ALL THE EDEMA. SHIFT ASSESSMENT COMPLETED AT THIS TIME. MORNING MEDICATIONS GIVEN AND PT SWALLOWED BUT C/O SORENESS UPON ASSESSING HER MOUTH SPOTTED A COUPLE WHITE SPOTS APPEARING TO BE THRUSH WILL ASK DOCTOR IF NYSTATIN IS NEEDED. AN UA HAS BEEN ORDERED YESTERDAY BUT STILL NOT COLLECTED FOR SOME REASON SO I EXPLAINED TO PT AND FAMILY THAT WE NEED A SPECIMEN AND TEACHING PROVIDED ON GETTING A CLEAN CATCH. PT STARTED MEGACE TODAY BUT DID NOT LIKE THE TASTE SO I WILL SEE ABOUT GETTING IT CHANGED TO PILL FORM IS POSSIBLE. PT DENIES ANY FURTHER NEEDS AT THIS TIME. CL IN REACH, BED IN LOWEST, SIDE RAILS X2. WILL CPOC.
--- NOTE | 2017-03-29 10:29 | NUR ---
PT CALLED REQUESTING PRN PAIN MEDICATION AND WAS PROVIDED WITH IT. AT BEDSIDE TALKING WITH PT AND FAMILY. ASSESSED AND NOTED HER THRUSH AND WILL GET NYSTATIN ORDERED FOR HER. PT VOICED THANKS AND IS LAYING BACK IN BED TRYING TO REST. PT DENIES ANY FURTHER NEEDS AT THIS TIME. CL IN REACH, BED IN LOWEST, SIDE RAILS X2. WILL CTM.
--- NOTE | 2017-03-29 10:57 | HP ---
PATIENT: JARRELL HARRELL MEDICAL RECORD: [id number] ACCOUNT: [id number] LOCATION:[address] : 35 ADMISSION DATE: 03/27/17 HISTORY AND PHYSICAL EXAMINATION ADMITTING PHYSICIAN: Kirit Vo MD REASON FOR ADMISSION: Shortness of breath and fatigue. HISTORY OF PRESENT ILLNESS: The patient is a ____[id number] female. She was admitted to [facility] several weeks ago for generalized weakness and multi-organism UTI with Klebsiella, Enterococcus and fall. She progressed to rehab and was finished her antibiotic therapy there, but states after 4 days, she was getting worse and worse. She complained of left edema in her lower extremities despite oral Lasix. Without reason, she was transferred back to the floor early yesterday afternoon. She says she has had some mild shortness of breath, but no recent sputum production or chest pain. She said her right leg pain has improved since her fall. Past history: Essential hypertension, sick sinus syndrome with pacemaker, atrial fibrillation, recent Klebsiella and enterococcus UTI, postmenopausal; breast cancer post-right mastectomy; fibromyalgia, gout, dementia, history of frequent falls, chronic low back pain with recent surgery for lumbar canal stenosis. PAST MEDICAL HISTORY: Hypertension, atrial fibrillation, sick sinus syndrome with pacemaker, sleep apnea on BiPAP, rheumatoid arthritis, depression; pandiverticulosis per colonoscopy, October 20. PAST SURGICAL HISTORY: Pacemaker placement, cholecystectomy, hysterectomy, nephrectomy for renal mass, right mastectomy with reconstruction, splenectomy, lumbar decompression for stenosis 2016. ALLERGIES: DEMEROL. SOCIAL HISTORY: Nonsmoker, nondrinker. She is , lives with her and was able to walk with a cane prior to admission to the hospital, he states. HOME MEDICATIONS: Zoloft 100 mg daily, Exelon patch 9.5 mg daily, potassium 20 mEq daily, Protonix 40 mg a day, Synthroid 75 mcg daily, estradiol 1 mg daily, vitamin B12 of 1000 mcg daily, vitamin D 1000 international units daily, allopurinol 300 mg a day, Zofran 4 mg q. 4 hours p.r.n. nausea or vomiting, Ultracet q. 4 hours p.r.n. pain, Restoril 30 mg at h.s. p.r.n. sleep, sotalol 80 mg b.i.d., Mysoline 50 mg at bedtime, lisinopril 20 mg b.i.d., Atrovent 2 sprays t.i.d., Eliquis 2.5 b.i.d., MiraLax 17 grams p.o. daily. REVIEW OF SYSTEMS: GENERAL: She has been fatigued and had some weight gain and according to her , he thinks due to fluid. She denies fever. HEENT: No recent visual change, sinus congestion, sore throat or hearing difficulty. RESPIRATORY: She says she has intermittent cough that is nonproductive. She is not short of breath. Denies hemoptysis. CARDIAC: Denies chest pain. She had marked edema since being hospitalized, receiving IV fluids. ENDOCRINE: Denies polyuria, polydipsia, heat or cold intolerance. NEUROLOGIC: History of TIA and dementia followed by Dr. Block, neurologist in HISTORY AND PHYSICAL [id number] JARRELL HARRELL. INTEGUMENT: She has had some bruising on her right leg popliteal area after her fall. Her says her legs have been weeping. PSYCHIATRIC: Admits to depressed mood. GENITOURINARY: Has mild urgency to urinate at times and feels like she voids easily. PHYSICAL EXAMINATION: VITAL SIGNS: Pulse 62 and regular, temperature is 97.2 Fahrenheit orally, respirations are 16 and nonlabored, blood pressure 124/48 with a sat of 98% on room air. GENERAL: The patient appears fatigued, but oriented. HEENT: Eyes are clear. Oropharynx showed dry mucous membranes. NECK: Supple, without bruits or masses. CHEST: Distant breath sounds without wheeze or rales. HEART: Regular rate and rhythm. BREAST: Reconstruction on the right. ABDOMEN: Soft and nontender without organomegaly, masses or bruits. PELVIC: Deferred. EXTREMITIES: She has 3+ mild pedal and 2+ pretibial edema to the knees bilaterally. She has some bruising in the popliteal area on the right leg, but no wound is appreciated. NEUROLOGICAL: She is oriented to person and place, but not time. She cannot remember 3 objects in 5 minutes. She has no obvious motor deficits except for generalized weakness. Gait was not tested. LABORATORY DATA: Shows a white count of 12.7 thousand with H&H of 10.1 and 30.8 respectively, platelet count 274,000, MCV of 81.3. Sodium 131. CO2 of 17.4, BUN of 39, creatinine of 1.8, calcium 7.7, albumin is low at 1.9, serum protein is low at 5.8. DIAGNOSTIC DATA: Chest x-ray is pending. ASSESSMENT: 1. Multi-organism urinary tract infection, finishing therapy. 2. Third-spacing edema. Currently, etiology unknown. 3. Hypoalbuminemia. 4. History of atrial fibrillation and sick sinus syndrome with pacemaker. 5. Dementia. 6. Hypertension. PLAN: 1. Increase Lasix at this time to help with her edema. Check echo, I cannot find a recent echo on this hospitalization to assess EF. Her says her legs look better this morning. We will keep elevated gradually increase physical therapy with PT. It appears she has received a complete course of antibiotics, but will reculture urine today and be sure before stopping antibiotics remain in isolation. 2. Full course have discussed with the and daughter. TRANSINT:[id number] Voice Confirmation ID: [id number] DOCUMENT ID: [id number] HISTORY AND PHYSICAL [id number] JARRELL HARRELL TIMOTHY MD at 1057 CC: [id number] DICTATION DATE: 03/28/17 0756 STOPPER MAKER HELPER: 03/28/17 0902 [facility] IN [facility] [address] [place] [address]
[2017-03-29 12:00] VITALS: BP 90/31
--- NOTE | 2017-03-29 12:06 | NUR ---
EMPLOYMENT COACH NOTIFIED ME OF A DROP IN BP. I MANUALLY CHECKED IT AND GOT 100/48 THIS IS LOWER THAN EARLIER BUT PT DENIES ANY FEELINGS OF DISCOMFORT AND NEW WEAKNESS AND STATES IT COULD BE FROM GETTING UP AND DOWN TO BSC SHE JUST RECENTLY DID. WILL CONTINUE TO MONITER IT CLOSELY. NO CURRENT NEEDS AT THIS TIME. CAREGIVER AT BEDSIDE TO ASSIST HER WITH LUNCH.
[2017-03-29 15:49] LABS: APPEARANCE CLEAR (CLEAR); BILIRUBIN NEGATIVE (NEGATIVE); COLOR YELLOW (YELLOW); GLUCOSE NEGATIVE (NEGATIVE); KETONE NEGATIVE (NEGATIVE); LEUKOCYTE ESTERASE NEGATIVE (NEGATIVE); NITRITE NEGATIVE (NEGATIVE); PROTEIN NEGATIVE (NEGATIVE); UROBILINOGEN NORMAL (NORMAL)
[2017-03-29 16:00] VITALS: BP 103/41
--- NOTE | 2017-03-29 18:24 | NUR ---
PT HAS ONLY VOIDED TWICE TODAY SO I DID A BLADDER SCAN ONLY 208MLS WERE FOUND PT STATES SHE NEEDS TO PEE NOW SO ASSISTED HER ONTO BSC AND PT WAS ABLE TO VOID 200ML WILL CTM FOR RETENTION.
--- NOTE | 2017-03-29 19:46 | NUR ---
RESUMED CARE OF PT, LYING IN BED RESPIRATIONS EVEN AND UNLABORED ON ROOM AIR. 60 SR ON TELEMETRY. RIGHT AC INFUSING NS @ 10. FAMILY AT BEDSIDE, PLAN OF CARE DISCUSSED. NO NEEDS VOICED AT THIS TIME, CALL LIGHT IN REACH. SEE NURSE ASSESSMENT. WILL CONTINUE TO MONITOR.
[2017-03-29 20:36] VITALS: BP 102/43
[2017-03-29 23:59] VITALS: BP 118/37
[2017-03-30 04:00] VITALS: BP 110/42
[2017-03-30 05:06] LABS: BASOPHILS 0.2 % (0-2); EOSINOPHILS 1.4 % (0-7); HEMOGLOBIN 10.4 g/dL (12-16); IMMATURE GRANULOCYTES 0.6 % (0-5); MCH 26.6 pg (26.0-34.0); MCHC 32.5 g/dL (31.0-37.0); MCV 81.8 fL (80.0-100.0); MEAN PLATELET VOLUME 10.2 fL (7.4-10.4); MONOCYTES 16.6 % (2-11); NEUTROPHILS 51.2 % (40-80); PLATELET COUNT 258 10x3/uL (130-400); RBC 3.91 10x6/uL (4.00-5.40); RDW 20.4 % (11.5-14.5); WBC 12.7 10x3/uL (4.8-10.8)
[2017-03-30 07:57] LABS: ANION GAP 15.6 mmol/L (8-16); CALCIUM 7.6 mg/dL (8.5-10.1); CARBON DIOXIDE 19.4 mmol/L (21.0-32.0); CREATININE - SERUM 1.8 mg/dL (0.6-1.3)
[2017-03-30 08:22] VITALS: BP 106/55
--- NOTE | 2017-03-30 11:40 | NUR ---
ALERT AND ORIENTED X4. SLOW TO RESPOND. SITTING UP IN CHAIR. LEGS WHEEPING BILATERALLY. FAMILY AT BEDSIDE. REQUESTING TO GO BACK TO BED. REFUSES TO REMAIN IN CHAIR DURING LUNCH. PHYSICAL THERAPY ASSIST BACK TO BED FROM THE CHAIR. SINUS RHTHYM WITH PACED BEATS 88bpm. BED LOCKED AND LOW. CALL LIGHT IN REACH. TWO SIDERAILS UP.
[2017-03-30 12:19] VITALS: BP 123/52
[2017-03-30 14:39] VITALS: Ht 154.9 cm; Wt 75.7 kg
--- NOTE | 2017-03-30 18:38 | NUR ---
SPOKE WITH JULIANE HARRELL, PATIENT SON ([phone]). EXPRESSES CONCERNS REGARDING CARDIOLOGY CONSULT. NO NOTE FROM CARDIOLOGY ON CHART. HAVE GIGI RECONSULT CARDIOLOGY.
[2017-03-30 21:16] VITALS: BP 127/46
--- NOTE | 2017-03-30 21:44 | NUR ---
PT LYING IN BED, HOB 20 DEGREES, AWAKE, ALERT, ORIENTED. PT IS VERY WEAK, AND REQUIRES ASSISTANCE WITH ALL ADL'S. PT DENIES ANY NEEDS AT THIS TIME. CONTINUE TO MONITOR CLOSELY. BED LOW, CALL LIGHT IN REACH, SIDE RAILS X 2, HOB 30 DEGREES. GRAND-DAUGHTER AT BEDSIDE.
[2017-03-30 23:55] VITALS: BP 124/40
[2017-03-31 03:56] VITALS: BP 119/36
[2017-03-31 06:28] LABS: HEMATOCRIT 32.9 % (36.0-48.0); HEMOGLOBIN 10.9 g/dL (12-16); MCH 27.3 pg (26.0-34.0); MCHC 33.1 g/dL (31.0-37.0); MCV 82.3 fL (80.0-100.0); MEAN PLATELET VOLUME 10.1 fL (7.4-10.4); PLATELET COUNT 291 10x3/uL (130-400); RDW 20.5 % (11.5-14.5)
[2017-03-31 06:46] LABS: ANION GAP 18.3 mmol/L (8-16); BILIRUBIN - TOTAL 1.3 mg/dL (0.2-1.3); CALCIUM 7.8 mg/dL (8.5-10.1); CARBON DIOXIDE 19.8 mmol/L (21.0-32.0); CREATININE - SERUM 1.7 mg/dL (0.6-1.3); POTASSIUM - SERUM 4.1 mmol/L (3.5-5.1); PROTEIN - SERUM 5.7 g/dL (6.4-8.2)
[2017-03-31 08:00] VITALS: BP 111/50
[2017-03-31 08:26] LABS: BASOPHILS 1 % (0-2); EOSINOPHILS 2 % (0-7); LYMPHOCYTES 22 % (15-50); NEUTROPHILS 75 % (40-80)
[2017-03-31 08:32] LABS: ROULEAUX OCC
[2017-03-31 08:34] LABS: PLATELET ESTIMATE NORMAL
[2017-03-31 11:56] VITALS: BP 120/49
--- NOTE | 2017-03-31 17:02 | NUR ---
Patient Name: JARRELL HARRELL Admission Status: Urgent Accout number: [id number] Admission Date: 03-27-2017 : 1935 Admission Diagnosis:URINARY TRACT INFECTION, SITE NOT SPECIFIED Attending: TIMI Current LOS: 4 Anticipated DC Date: Planned Disposition: [facility] Facility Primary Insurance: MEDICARE A & B PLANNED EXTERNAL PROVIDER: [facility] Discharge Planning Comments: * Is the patient Alert and Oriented? Yes 0 * How many steps to enter\exit or inside your home? NONE 0 * PCP DR. HAIR 0 * Pharmacy [facility] 0 * Preadmission Environment Acute Inpatient Rehab 0 * Facility Name [facility] IN[facility]IENT [facility] 0 * ADLs Total Dependent 0 * Equipment Other 0 * Other Equipment ALL EQUIPMENT WAS PROVIDED BY REHAB. PT HAS CANE, ROLLING WALKER AND SHOWER CHAIR AT HOME, PROVIDER IS SEAN SUBRAMANIAN 0 * List name and contact numbers for known caregivers / representatives who currently or will assist patient after discharge: DEIDRE MARIA, SPOUSE, 0 * Community resources currently utilized Home Health 0 * Please name any agencies selected above. [facility] 0 * Additional services required to return to the preadmission environment? Yes * Can the patient safely return to the preadmission environment? Yes 0 * Has this patient been hospitalized within the prior 30 days at any hospital? Yes 0 CM MET WITH PT AND DAUGHTER IN ROOM TO DISCUSS DISCHARGE PLANNING AND NEEDS. PT REPORTS LIVING AT HOME WITH HER SPOUSE PRIOR TO LAST HOSPITALIZATION AND INPATIENT REHAB. PT'S DAUGHTER REPORTS PT WAS DISCHARGE TO INPATIENT REHAB TOO SOON AND BEGAN GETTING WEAK SOON THE IV ANTIBIOTICS STOPPED. CM DISCUSSED AVAILABILITY OF HOME HEALTH, REHAB SERVICES AND MEDICAL EQUIPMENT. PT REPORTS PLAN TO DISCHARGE TO [facility] FOR REHAB AND IV ANTIBIOTICS. CHOICE SIGNED. IMPORTANT MESSAGE FROM MEDICARE PROVIDED AND EXPLAINED. CM TO SEND REFERRAL FOR REHAB TO [facility] SOON POSSIBLE. Apple Sorter: Umair Cosby
[2017-03-31 17:48] VITALS: BP 112/51
--- NOTE | 2017-03-31 18:21 | NUR ---
ALERT AND ORIENTED X4. FAMILY AT BEDSIDE. NO CHANGE. REFUSE DINNER. FAMILY STATE, "MY BROTHER IS BRINGING HER SOMETHING TO EAT." NO CHANGE. PAIN MANAGEMENT CONTINUED. CONTINUE PLAN OF CARE AND SAFETY PRECAUTIONS. SINUS RHTHYM 63bpm WITH PACED BEATS ON TELEMETRY.
[2017-03-31 19:00] VITALS: BP 128/47
--- NOTE | 2017-03-31 19:40 | NUR ---
PT IS RESTING IN BED WITH EYES OPEN. ALERT AND ORIENTED X 3. NO ACUTE DISTRESS NOTED. MULTIPLE FAMILY MEMBERS ARE AT THE BEDSIDE. RIGHT AC SALINE LOCK NOTED. CONTACT PRECAUTIONS OBSERVED. WEEPING EDEMA NOTED IN BLE. PT ASSISTED UP TO BSC WITH MAX ASSIST FOR TRANSFERS. VOIDED WITHOUT DIFFICULTY. BED LINENS CHANGED WHILE PT WAS UP. SR'S ARE UP X 3 IN BED. CALL LIGHT AND BEDSIDE TABLE ARE WITHIN EASY REACH.
--- NOTE | 2017-03-31 22:14 | NUR ---
PT ASSISTED UP TO BSC. VOIDED WITHOUT DIFFICULTY. BED LINENS CHANGED. 2 OPEN AREAS NOTED ON RIGHT KNEE. DRY DRESSING APPLIED.
[2017-04-01] VITALS: BP 128/55
--- NOTE | 2017-04-01 01:47 | NUR ---
RESTING QUIETLY IN BED WITH EYES CLOSED. RESPS ARE EVEN AND UNLABORED. NO ACUTE DISTRESS NOTED.
[2017-04-01 04:00] VITALS: BP 136/55
[2017-04-01 06:23] LABS: BASOPHILS 0.2 % (0-2); EOSINOPHILS 1.4 % (0-7); HEMATOCRIT 31.2 % (36.0-48.0); HEMOGLOBIN 10.2 g/dL (12-16); IMMATURE GRANULOCYTES 0.6 % (0-5); LYMPHOCYTES 16.3 % (15-50); MCH 26.9 pg (26.0-34.0); MCHC 32.7 g/dL (31.0-37.0); MCV 82.3 fL (80.0-100.0); MEAN PLATELET VOLUME 9.5 fL (7.4-10.4); MONOCYTES 13.4 % (2-11); NEUTROPHILS 68.1 % (40-80); PLATELET COUNT 296 10x3/uL (130-400); RBC 3.79 10x6/uL (4.00-5.40); WBC 12.5 10x3/uL (4.8-10.8)
--- NOTE | 2017-04-01 06:30 | NUR ---
PT RESTING IN BED WITH EYES CLOSED. AWOKE EASILY TO VERBAL STIMULI. DENIES NEEDS. TOLERATED AM MEDS WITHOUT DIFFICULTY.
--- NOTE | 2017-04-01 07:23 | NUR ---
AM ROUNDS- PT IN BED, DENIES ANY NEEDS AT THIS TIME. FAMILY AT BEDSIDE, BED LOW AND LOCKED, BEDSIDE RAILS X2. CALL LIGHT IN REACH, NAD NOTED, WILL CONTINUE TO MONITOR.
[2017-04-01 07:36] LABS: ALBUMIN 1.8 g/dL (3.4-5.0); ANION GAP 15.2 mmol/L (8-16); CALCIUM 7.6 mg/dL (8.5-10.1); CARBON DIOXIDE 23.7 mmol/L (21.0-32.0); CREATININE - SERUM 1.6 mg/dL (0.6-1.3); POTASSIUM - SERUM 3.9 mmol/L (3.5-5.1)
[2017-04-01 07:48] LABS: BILIRUBIN - TOTAL 0.98 mg/dL (0.2-1.3); PROTEIN - SERUM 5.4 g/dL (6.4-8.2)
[2017-04-01 08:00] VITALS: BP 130/44
--- NOTE | 2017-04-01 08:29 | NUR ---
ADMINISTERED MORNING MEDICATIONS. PT TOOK PILLS A FEW AT A TIME. PT DENIES ANY NEEDS AT THIS TIME. CALL LIGHT IN REACH, AT BEDSIDE, NAD NOTED, WILL CONTINUE TO MONITOR.
--- NOTE | 2017-04-01 11:12 | NUR ---
Nutrition follow-up: Diet: Regular as tolerated Ensure with meals PO Intake ~25% of meals Labs reviewed Noted order for Proteinex; ordered to be given 30 ml BID Will continue to provide food choices and honor food preferences. RDN following.
--- NOTE | 2017-04-01 11:39 | NUR ---
PT UP TO CHAIR, DENIES ANY NEEDS AT THIS TIME. CALL LIGHT IN REACH, FAMILY AT BEDSIDE, NAD NOTED, WILL CONTINUE TO MONITOR.
[2017-04-01 12:00] VITALS: BP 122/343
--- NOTE | 2017-04-01 13:46 | NUR ---
WOUND CARE: UNNA BOOTS APPLIED BILATERALLY TO LOWER EXTREMITIES. WRAPPED FROM BASE OF TOES TO JUST BELOW KNEES. WOUND CARE WILL MONITOR
--- NOTE | 2017-04-01 13:54 | EC ---
PATIENT:JARRELL HARRELL DATE OF SERVICE: 03/27/17 SEX: F MEDICAL RECORD: [id number] DATE OF : [birth year] LOCATION:D.M2 D.213 AGE OF PATIENT: 81 ADMISSION DATE: 03/27/17 REFERRING PHYSICIAN: INTERPRETING PHYSICIAN: TAYE SINGH M.D. ECHOCARDIOGRAM REPORT ECHO CHARGES 4 ECHO COMPLETE CLINICAL DIAGNOSIS: SSS/SOB HX PACER ECHOCARDIOGRAPHIC MEASUREMENTS (adult normal given) AC root (d.<3.7cm) 3.7 LV Septum d (<1.2 cm> 1.1 Valve Excursion 0.8 LV Septum (systole) 1.3 Left Atria (s.<4.0cm> 2.7 LVPW d(<1.2cm) 1.1 RV (d.<2.3cm) 4.4 LVPW (sytole) 1.8 LV diastole(<5.6CM) 4.9 MV E-F(>70mm/sec) LV systole 1.9 LVOT Diameter 1.1 MV exc.(>10mm) Est.ejection fraction (50-75%) Pericardial Effusion Y DOPPLER: LVIT A 28.0 E 103 LA RVSP 39 LVOT 111 AOP1/2T 592 Asc. Ao 209 RVOT 82 RA PA 109 AV Gradient Peak 17.41 AV Mean 9.85 AV Area 1.1 MV Gradient Peak 4.59 MV Mean 1.54 MV Area COMMENTS: Slip Seat Coverer: Abhijit PEDRAZA Chief Mate:2 Dr. Singh TAPE# PACS DATE OF SERVICE: 03/28/2017 INDICATION: Dyspnea. REFERRING PHYSICIAN: Kirit Vo MD DESCRIPTION: Left ventricle demonstrates left ventricular hypertrophy. No wall motion abnormalities are seen. Estimated ejection fraction is 55%. Mitral valve is structurally normal. There is mild regurgitation seen. Left atrium is normal in size. The aortic valve is trileaflet. Leaflets are slightly ECHOCARDIOGRAM REPORT [id number] JARRELL HARRELL thickened. There is mild insufficiency seen, but no evidence of stenosis. Right ventricle is mildly dilated. Tricuspid valve is structurally normal. There is moderate to severe regurgitation seen. Right atrium is mildly dilated. There is physiologic pericardial effusion noted. Pleural effusions are noted as well. IMPRESSION: 1. Left ventricular hypertrophy with preserved ejection of 55%. 2. Mild mitral regurgitation. 3. Mild aortic insufficiency. 4. Moderate to severe tricuspid regurgitation. 5. Pleural effusions are noted as well. TRANSINT:[id number] Voice Confirmation ID: [id number] DOCUMENT ID: [id number] TAYE SINGH M.D. at 1354 CC: [id number] DICTATION DATE: 03/28/171621 UTILITY PORTER: 03/29/17 0000 ADM IN [facility] [address] [place] [address]
--- NOTE | 2017-04-01 15:41 | NUR ---
Patient Name: JARRELL HARRELL Encounter No: [id number] : 1935 Primary Insurance: MEDICARE A & B Anticipated DC Date: Planned Disposition: Long-Term Facility External Planned Provider: [facility] DCP follow-up note: CM FAXED REFERRAL FOR REHAB / SKILLED PLACEMENT AT [facility]. REFERRAL FAXED TO [facility] AT [phone]. CM CALLED [facility], , NOTIFIED OF THE REFERRAL. [facility] HAS NO AVAILABLE REHAB BEDS THIS WEEK. CM WAITING ADMISSION DETERMINATION FROM [facility] FOR REHAB / SKILLED BED. Umair Cosby, CASE MANAGEMENT
[2017-04-01 15:51] VITALS: BP 136/46
--- NOTE | 2017-04-01 15:57 | NUR ---
ADMINISTERED 1 TAB OF TRAMADOL FOR PAIN LEVEL OF 8/10. PT IN BED, DENIES ANY OTHER NEEDS AT THIS TIME. FAMILY AT BEDSIDE, NAD NOTED, WILL CONTINUE TO MONITOR.
[2017-04-01 19:00] VITALS: BP 142/42
--- NOTE | 2017-04-01 19:30 | NUR ---
PT IN BED WITH HOB FOR COMFORT. FAMILY AT BEDSIDE. CONTACT ISOLATION FOR ESBO IN URINE. NO O2. RT AC SALINE LOC. TELEMETRY. DRESSINGS C/D/I TO BILATERAL LOWER EXT. ELECTROLYTE PROTOCOL. BED IN LOWEST POSITION AND CALL LIGHT WITHIN REACH.
--- NOTE | 2017-04-01 20:28 | NUR ---
DIRECTOR DAY CARE CENTER AT BEDSIDE TO OBTAIN VITALS, CALL LIGHT IN REACH. WILL CONTINUE WITH PLAN OF CARE. 64 PACEDON TELEMETRY
[2017-04-02] VITALS: BP 157/55
--- NOTE | 2017-04-02 03:28 | NUR ---
PT IN BED WITH HOB UP FOR COMFORT. RESTING QUIETLY. FAMILY AT BEDSIDE. BED IN LOWEST POSITION AND CALL LIGHT WITHIN REACH.
[2017-04-02 04:00] VITALS: BP 140/50
[2017-04-02 06:23] LABS: BASOPHILS 0.3 % (0-2); EOSINOPHILS 2.7 % (0-7); HEMATOCRIT 30.9 % (36.0-48.0); HEMOGLOBIN 10.3 g/dL (12-16); IMMATURE GRANULOCYTES 0.8 % (0-5); LYMPHOCYTES 31.7 % (15-50); MCH 27.5 pg (26.0-34.0); MCHC 33.3 g/dL (31.0-37.0); MCV 82.6 fL (80.0-100.0); MEAN PLATELET VOLUME 9.5 fL (7.4-10.4); MONOCYTES 13.4 % (2-11); NEUTROPHILS 51.1 % (40-80); PLATELET COUNT 288 10x3/uL (130-400); RBC 3.74 10x6/uL (4.00-5.40); RDW 21.2 % (11.5-14.5); WBC 10.6 10x3/uL (4.8-10.8)
[2017-04-02 06:33] LABS: ANION GAP 15.7 mmol/L (8-16); CALCIUM 7.8 mg/dL (8.5-10.1); CARBON DIOXIDE 24.6 mmol/L (21.0-32.0); CREATININE - SERUM 1.5 mg/dL (0.6-1.3)
[2017-04-02 06:36] LABS: POTASSIUM - SERUM 3.3 mmol/L (3.5-5.1)
[2017-04-02 08:28] VITALS: BP 107/47
[2017-04-02 11:56] VITALS: BP 148/52
[2017-04-02 15:12] VITALS: BP 139/51
[2017-04-02 19:00] VITALS: BP 148/48
--- NOTE | 2017-04-02 19:05 | NUR ---
RECEIVED REPORT, ASSIST PT BACK TO BED, REPOSITION PT, BED IS LOW, SRX2, CALL LIGHT IN REACH, WILL CONTINUE PLAN OF CARE
--- NOTE | 2017-04-02 23:40 | NUR ---
TERRITORY SALES REPRESENTATIVE AT BEDSIDE TO OBTAIN VITALS, CALL LIGHT IN REACH. WILL CONTINUE WITH PLAN OF CARE.
--- NOTE | 2017-04-03 02:23 | NUR ---
ASSESSMENT COMPLETE, SEE FLOWSHEET, PT SLEEPING, DAUGHTER AT BEDSIDE, BED ALARM IS ON, BED IS LOW, SRX2, CALL LIGHT IN REACH, WILL CONTINUE PLAN OF CARE
[2017-04-03 04:00] VITALS: BP 130/47
[2017-04-03 05:29] LABS: BASOPHILS 0.2 % (0-2); EOSINOPHILS 3.3 % (0-7); HEMATOCRIT 31.4 % (36.0-48.0); HEMOGLOBIN 10.2 g/dL (12-16); IMMATURE GRANULOCYTES 0.6 % (0-5); LYMPHOCYTES 22.6 % (15-50); MCH 27.3 pg (26.0-34.0); MCHC 32.5 g/dL (31.0-37.0); MEAN PLATELET VOLUME 9.9 fL (7.4-10.4); MONOCYTES 12.4 % (2-11); NEUTROPHILS 60.9 % (40-80); PLATELET COUNT 312 10x3/uL (130-400); RBC 3.74 10x6/uL (4.00-5.40); RDW 21.8 % (11.5-14.5); WBC 9.6 10x3/uL (4.8-10.8)
[2017-04-03 05:52] LABS: ALBUMIN 1.7 g/dL (3.4-5.0); ANION GAP 11.7 mmol/L (8-16); CARBON DIOXIDE 26.4 mmol/L (21.0-32.0); CREATININE - SERUM 1.4 mg/dL (0.6-1.3); POTASSIUM - SERUM 3.1 mmol/L (3.5-5.1)
--- NOTE | 2017-04-03 07:42 | NUR ---
AM ROUNDING- RECEIVED REPORT FROM SHAKER SCREEN OPERATOR NURSE STEVE. PT IS CURRENTLY SITTING UP IN BED WITH EYES OPEN RESTING. FAMILY MEMBERS (DAUGHTER AND ) ARE AT BEDSIDE. IN CONTACT ISOLATION FOR E.COLI IN URINE PER REPORT. ON ROOM AIR. ON MONITOR SHOWING PACED, HR 62 WITH ATRIAL BEATS (PER ONOFRE IN TELEMETRY). IV SEEN TO RIGHT AC WITH NS RUNNING AT KVO CURRENTLY. NO NEED AT CURRENT TIME. WILL CONTINUE TO MONITOR AND CONTINUE WITH PLAN OF CARE.
[2017-04-03 08:44] VITALS: BP 116/68
[2017-04-03 12:00] VITALS: BP 117/87
--- NOTE | 2017-04-03 14:59 | NUR ---
PT IS CURRENTLY LAYING IN BED ON BACK WITH EYES OPEN RESTING C/O 7/10 PAIN COMING FROM "HEAD, BACK, AND SHOULDERS". VINEET RAYMOND JUST GOT DONE GIVING PT BED BATH. WILL GIVE PT PAIN MEDICATION ORDERED FOR PAIN AND CONTINUE TO MONITOR.
--- NOTE | 2017-04-03 15:06 | NUR ---
Patient Name: JARRELL HARRELL Encounter No: [id number] : 1935 Primary Insurance: MEDICARE A & B Anticipated DC Date: 04-05-2017 Planned Disposition: [facility] Facility External Planned Provider: [facility], MEDICARE REHAB BED DCP follow-up note: CM RECEIVED CALL FROM ZEESHAN OF [facility], , WHO REPORTED THAT [facility] WILL ACCEPT PT FOR REHAB SERVICES AND CAN ADMIT PT ON 04-05-17 OR Thursday04-08-17 (AND AFTER). CM SPOKE TO PT'S SPOUSE WHO IS IN AGREEMENT WITH DISCHARGE TO REHAB AT [facility], HE HAS ALREADY VISITED THE FACILITY AND SPOKEN TO ZEESHAN. PT'S SPOUSE REPORTS HE AND PT ARE BOTH READY FOR DISCHARGE SOON POSSIBLE TO [facility]. IMPORTANT MESSAGE FROM MEDICARE PROVDIED AND EXPLAINED. AMPARO CALLED AND NOTIFIED DR. HAIR'S NURSE OF THE ABOVE. FOR DISCHARGE ON Thursday OR THURSDAY MORNING OF NEXT WEEK TO [facility], NOTIFY [facility] AND CALL NURSE REPORT TO [phone]. FAX DISCHARGE INFORMATION TO [phone]. [facility]UD YARSANI TO ARRANGE [facility]AN TRANSPORT IF PT IS ABLE TO SIT FOR DURATION OF TRANSPORTATION. Umair Cosby, CASE MANAGEMENT
--- NOTE | 2017-04-03 17:54 | NUR ---
PT IS CURRENTLY SITTING UP IN BED WITH EYES OPEN RESTING. DAUGHTERS ARE AT BEDSIDE. VINEET GRIFFITHS JUST HELPED PT BACK TO BED OFF BEDSIDE COMMODE. NO NEED AT CURRENT TIME. WILL CONTINUE TO MONITOR.
[2017-04-03 18:24] VITALS: BP 158/67
[2017-04-03 19:00] VITALS: BP 134/52
--- NOTE | 2017-04-03 22:31 | NUR ---
NURSE ROUNDS 21:00 - PT AWAKE, ALERT, ORIENTED, DAUGHTER AT BEDSIDE. PT IS AMBULATING/TRANSFERRING TO BEDSIDE COMMODE EASIER TONIGHT THAN PRIOR SHIFTS. PT STILL REQUIRES ASSIST X 1. NO OTHER NEEDS AT THIS TIME. CONTINUE TO MONITOR CLOSELY.
[2017-04-04 04:00] VITALS: BP 147/51
[2017-04-04 06:53] LABS: BASOPHILS 0.2 % (0-2); EOSINOPHILS 3.7 % (0-7); HEMATOCRIT 32.9 % (36.0-48.0); HEMOGLOBIN 10.6 g/dL (12-16); IMMATURE GRANULOCYTES 0.6 % (0-5); LYMPHOCYTES 19.4 % (15-50); MCH 27.2 pg (26.0-34.0); MCHC 32.2 g/dL (31.0-37.0); MCV 84.4 fL (80.0-100.0); MEAN PLATELET VOLUME 9.3 fL (7.4-10.4); MONOCYTES 12.1 % (2-11); PLATELET COUNT 320 10x3/uL (130-400); RDW 21.8 % (11.5-14.5); WBC 10.5 10x3/uL (4.8-10.8)
[2017-04-04 07:15] LABS: ANION GAP 14.1 mmol/L (8-16); CARBON DIOXIDE 27.6 mmol/L (21.0-32.0); CREATININE - SERUM 1.4 mg/dL (0.6-1.3); POTASSIUM - SERUM 3.7 mmol/L (3.5-5.1)
--- NOTE | 2017-04-04 07:59 | NUR ---
PATIENT IN CONTACT ISOLATION FOR URINE. ASSISTED PATIENT OFF BEDPAN. BILATERAL LOWER LEGS SEEN WITH DOMINIQUE BOOT WRAPS ON, BEHIND RIGHT KNEE IS A MEPILEX. BILATERAL FOOT ARE WITH 3+ EDEMA. RIGHT AC SEEN WITH NS INFUSING AT 10 CC/HR. ON HEART MONITOR SHOWING PACED, HR 61. ON ROOM AIR. FAMILY AT BEDSIDE. BILATERAL FEET ARE UP ON PILLOWS. CALL LIGHT IN USE.
[2017-04-04 08:00] VITALS: BP 156/54
[2017-04-04 12:00] VITALS: BP 122/47
--- NOTE | 2017-04-04 15:00 | NUR ---
FAMILY TO ASSIST PATIENT OFF BSC AND PATIENT IS HAVING FLUID LEAK BEHIND HER RIGHT KNEE. WRAPPED WITH AN ABD PAD AND KERLIX. TOLERATES WELL.
[2017-04-04 16:00] VITALS: BP 142/56
[2017-04-04 20:00] VITALS: BP 152/50
--- NOTE | 2017-04-04 20:09 | NUR ---
RECEIVED REPORT, WILL ASSUME CARE OF PT, FAMILY AT BEDSIDE, PT DENIES ANY NEEDS AT THIS TIME, BED IS LOW, SRX2, WILL CONTINUE PLAN OF CARE
--- NOTE | 2017-04-05 00:20 | NUR ---
ASSESSMENT COMPLETE, SEE FLOWSHEET, PT IS RESTING,BED IS LOW, SRX2,BED ALARM IS ON,CALL LIGHT IN REACH, WILL CONTINUE PLAN OF CARE
[2017-04-05 04:00] VITALS: BP 147/52
--- NOTE | 2017-04-05 07:10 | NUR ---
RECEIVED REPORT. ASSUMED CARE OF PATIENT. RESTING IN BED WITH EYES CLOSED. EASILY AROUSED. PATIENTS AT BEDSIDE. CALL LIGHT WITHIN REACH. RESP EVEN AND UNLABORED. PATIENT REMAINS IN ISOLATION FOR ECOLI IN URINE. NO DISTRESS.
[2017-04-05 08:00] VITALS: BP 179/91
[2017-04-05 11:35] VITALS: BP 137/53
--- NOTE | 2017-04-05 12:25 | NUR ---
MEDICATED FOR NAUSEA AT THIS TIME. NO DISTRESS. ASSISTED PATIENT TO BSC AND BACK TO BED. CALL LIGHT WITHIN REACH.
[2017-04-05] MEDS ORDERED: ROCEPHIN 1 GM/D51 G1 IV (12:46)
--- NOTE | 2017-04-05 13:06 | NUR ---
SPOKE WITH Gavi AT [facility] TO NOTIFY THAT RAS COULD POTENTIALLY DISCHARGE TODAY. SHE STATES THAT SHE IS UNAWARE OF ARRANGEMENTS THAT WERE MADE BY [facility] FOR ADMISSION TODAY. SHE IS TO CONTACT [facility] AND THEN CALL BACK.
--- NOTE | 2017-04-05 13:21 | NUR ---
CALL RECEIVED FROM Gavi TORRES @ [facility]. THEY WILL NOT BE ABLE TO PICK PATIENT UP TODAY, BUT WILL GO AHEAD AND MAKE ARRANGEMENTS TO PICK HER UP FIRST THING TOMORROW MORNING. INFORMED BRENNON CHRISTENSEN.
--- NOTE | 2017-04-05 13:25 | NUR ---
[facility] TO BE HERE IN THE MORNING TO PICK PATIENT UP @ 10:00 AM. WILL FAX ALL PERTINENT INFORMATION TO Gavi TORRES
--- NOTE | 2017-04-05 13:49 | NUR ---
MAILE PLUMEMR CALLED [facility] ABOUT PATIENT BEING DISCHARGED AND SPOKE WITH THE DORECTOR OF NURSING AT [facility] AND THE D.O.N WAS NOT AWARE OF PATIENT ADMISSION. D.O.N. OF [facility] CALLED THE ADMISSIONS PERSONEL AND THERE WAS A MISCOMMUNICATION. D.O.N STATED THAT THEY COULD NOT ACCEPT HER TODAY BUT WOULD BE HERE AT 10AM ON Thursday04/06/17 TO PICK PATIENT UP. FAMILY NOTIFIED OF THIS INFORMATION. FAMILY DISAPPOINTED DISCHARGE / ADMISSION IS DELAYED BUT UNDERSTANDING.
--- NOTE | 2017-04-05 14:30 | NUR ---
RIGHT UPPER THIGH KERLIX SATURATED FROM SKIN WEEPING. ABD PAD AND KERLIX REPLACED TO RIGHT UPPER THIGH ONLY, WEEKLY DRESSING TO BILATERAL LOWER EXTREMIITES NOT CHANGED.
[2017-04-05 15:43] VITALS: BP 138/48
--- NOTE | 2017-04-05 18:23 | NUR ---
RESTING WITH EYES CLOSED. NO DISTRESS. CALL LIGHT WITHIN REACH.
--- NOTE | 2017-04-05 18:46 | NUR ---
22 GAUGE IV PLACED TO LEFT WRIST X 1 STICK. GOOD BLOOD RETURN, EASY FLUSH. TAPED, DATED AND SECURED. TOLERATED IV PLACEMENT WELL. CALL LIGHT WITHIN REACH. NO DISTRESS.
--- NOTE | 2017-04-05 19:44 | NUR ---
RECEIVED REPORT, ASSUMED CARE OF PT, PT DENIES ANY NEEDS, BED IS LOW, SRX2, CALL LIGHT IN REACH, WILL CONTINUE PLAN OF CARE
[2017-04-05 20:00] VITALS: BP 146/47
--- NOTE | 2017-04-06 04:03 | NUR ---
ASSESSMENT COMPLETE, SEE FLOWSHEET, PT SLEEPING ON L.SIDE, BED IS LOW, SRX2, CALL LIGHT IN REACH, WILL CONTINUE PLAN OF CARE
[2017-04-06 08:40] VITALS: BP 140/54
[2017-04-06] MEDS ORDERED: CEFTRIAXONE1 G/VIAL IM (09:57)
--- NOTE | 2017-04-06 10:07 | NUR ---
PT BEING DISCHARGED TO [facility]. CALLED REPORT TO YASMINE AT [facility]. TELEMETRY REMOVED AND PLACED WITH Patient Education [employer]. REMOVED L.WRIST PIV WITH CATH TIP FULLY INTACT. BELONGINGS COLLECTED AND SENT DOWN WITH . DISCHARGED PAPERS PROVIDED AND TEACHING COMPLETED. PT AND DENIES ANY QUESTIONS OR CONCERNS. NO FURTHER NEEDS. [facility] HERE TO PICK HER UP.
--- NOTE | 2017-04-06 10:11 | NUR ---
Patient Name: JARRELL HARRELL Encounter No: [id number] : 1935 Primary Insurance: MEDICARE A & B Anticipated DC Date: 04-06-2017 Planned Disposition: [facility]dc Facility External Planned Provider: [facility], MEDICARE REHAB BED LATE ENTRY: DCP follow-up note: ACCORDING TO NURSES NOTES LEFT FOR CM, DISCHARGE INFORMATION FAXED TO [facility] 04-05-17. CM MET WITH PT AND SPOUSE IN ROOM, BOTH IN AGREEMENT WITH DISCHARGE TO REHAB AT [facility]. IMPORTANT MESSAGE FROM MEDICARE PROVIDED AND EXPLAINED. CALL NURSE REPORT TO [phone]. [facility] TO ARRANGE [facility]AN TRANSPORT AT ABOUT 1000 TODAY. Umair Cosby, CASE MANAGEMENT
--- NOTE | 2017-04-10 10:09 | CN ---
PATIENT NAME:JARRELL HARRELL MEDICAL RECORD: [id number] : 35 LOCATION:D.M2 D.2135 ADMIT DATE: 03/27/17 ACCOUNT: [id number] CONSULTING PHYSICIAN: ODILON CH MD REFERRING PHYSICIAN: BULMARO HAIR MD PROBLEM LIST: 1. Sick sinus syndrome. 2. Status post pacemaker. 3. Atrial fibrillation. 4. Hypertension. 5. Pulmonary hypertension. 6. Edema. 7. Shortness of breath - dyspnea on exertion. 8. Valvular heart disease, myocardial infarction, tricuspid regurgitation. HISTORY: The patient presents with lower extremity edema as well as some shortness of breath. The lower extremity edema is the most bothersome. Her legs are markedly edematous and swollen. She has been receiving IV Lasix. Her edema has improved although it is still there. She had an echocardiogram revealing only mild mitral regurgitation, moderate to severe tricuspid regurgitation, pulmonary systolic pressure in the 40-50 range. She has atrial fibrillation. This is unchanged. Her rate has been well controlled. Pacemaker interrogation reveals no significant dysrhythmia. Normal functioning pacemaker with the underlying atrial fibrillation. OVERALL IMPRESSION: Lower extremity edema, fluid retention, pulmonary hypertension, she has only mild mitral regurgitation, left ventricular function is normal however, she does have lower extremity edema most likely secondary to the pulmonary hypertension. This very well may be secondary to the valvular heart disease although the mitral regurgitation is not impressive, the tricuspid regurgitation is impressive due to the pulmonary hypertension. This is the etiology of her symptomatology. Really from a cardiovascular standpoint other than diuretics, there is really little to offer as her systemic blood pressure is under good control on her current medications. Diuresis as aggressively as renal function will allow. Not other cardiovascular workup is necessary. ODILON CH MD at 1009 CC: [phone] DICTATION DATE: 04/03/17 3005 PIANO MOVER: ROSA 04/03/17 2248 DIS IN 04/06/17 [place] [id number] [place] [id number]
== END 2017-04-06 10:10 | DRG 315 ==
LOC: D.M2 15:16
PROVIDERS: Family Medicine; ADMIT Family Medicine
DX: I27.2 Other secondary pulmonary hypertension (principal); I13.0 Hypertensive heart and chronic kidney disease with heart failure and stage 1 through stage 4 chronic kidney disease, or unspecified chronic kidney disease; E44.0 Moderate protein-calorie malnutrition; N39.0 Urinary tract infection, site not specified; I50.32 Chronic diastolic (congestive) heart failure; N28.9 Disorder of kidney and ureter, unspecified; Z95.0 Presence of cardiac pacemaker; F03.90 Unspecified dementia, unspecified severity, without behavioral disturbance, psychotic disturbance, mood disturbance, and anxiety; M79.7 Fibromyalgia; E88.09 Other disorders of plasma-protein metabolism, not elsewhere classified; Z68.29 Body mass index [BMI] 29.0-29.9, adult; N18.3 Chronic kidney disease, stage 3 (moderate); I48.2 Chronic atrial fibrillation; B96.1 Klebsiella pneumoniae [K. pneumoniae] as the cause of diseases classified elsewhere; Z85.3 Personal history of malignant neoplasm of breast; Z78.0 Asymptomatic menopausal state; I08.1 Rheumatic disorders of both mitral and tricuspid valves

== ENCOUNTER → 2017-04-24 09:16 | Outpatient (CLI) | payer MEDICARE, BC ==
[2017-03-30 14:39] VITALS: BMI 32.8
[~2017-04-24 09:16] MED LIST changes: +CEFTRIAXONE1 G/VIAL IM; +ROCEPHIN 1 GM/D51 G1 IV
== END | disposition home or self-care (01) ==
LOC: D.CT 09:16
DX: R42 Dizziness and giddiness (principal); R51 Headache

== ENCOUNTER 2017-05-06 12:34 | Inpatient (IN) | payer MEDICARE, BC ==
[~2017-05-06] VITALS: Ht 157.5 cm; Wt 59.0 kg
[2017-05-06 14:47] LABS: BASOPHILS 0.2 % (0-2); EOSINOPHILS 0.5 % (0-7); HEMATOCRIT 42.4 % (36.0-48.0); HEMOGLOBIN 13.3 g/dL (12-16); LYMPHOCYTES 21.5 % (15-50); MCH 29.9 pg (26.0-34.0); MCHC 31.4 g/dL (31.0-37.0); MCV 95.3 fL (80.0-100.0); MEAN PLATELET VOLUME 9.9 fL (7.4-10.4); MONOCYTES 12.2 % (2-11); NEUTROPHILS 64.6 % (40-80); RBC 4.45 10x6/uL (4.00-5.40); RDW 29.4 % (11.5-14.5); WBC 8.8 10x3/uL (4.8-10.8)
[2017-05-06 14:51] LABS: PLATELET COUNT 332 10x3/uL (130-400)
[2017-05-06 15:15] LABS: APPEARANCE HAZY (CLEAR); BILIRUBIN NEGATIVE (NEGATIVE); COLOR DK YELLOW (YELLOW); GLUCOSE NEGATIVE (NEGATIVE); KETONE NEGATIVE (NEGATIVE); NITRITE NEGATIVE (NEGATIVE); PROTEIN 2+ mg/dL (NEGATIVE); SPECIFIC GRAVITY 1.015 (1.005-1.020); UROBILINOGEN NORMAL (NORMAL)
[2017-05-06 15:17] LABS: LEUKOCYTE ESTERASE TRACE (NEGATIVE); RED CELLS - URINE 0-5 /hpf (0-5)
[2017-05-06 15:18] LABS: AMORPHOUS SEDIMENT <1+ /lpf (NONE SEEN); BACTERIA MODERATE /hpf (NONE SEEN); EPITHELIAL CELLS 0-5 /hpf (0-5)
[2017-05-06 16:26] LABS: ALBUMIN 2.3 g/dL (3.4-5.0); ANION GAP 17.1 mmol/L (8-16); BILIRUBIN - TOTAL 1.83 mg/dL (0.2-1.3); CALCIUM 8.4 mg/dL (8.5-10.1); CARBON DIOXIDE 21.5 mmol/L (21.0-32.0); CREATININE - SERUM 1.2 mg/dL (0.6-1.3); POTASSIUM - SERUM 3.6 mmol/L (3.5-5.1)
[2017-05-06 16:35] LABS: THYROID STIMULATING HORMONE 2.53 uIU/mL (0.36-3.74)
--- NOTE | 2017-05-06 19:15 | NUR ---
RECIEVED SHIFT REPORT. PT IS LYING IN BED. ALERT AND ORIENTED AND ABLE TO VERBALIZE NEEDS. IV IS PATENT AND SALINE LOC AT THIS TIME. PT IS AMBULATORY WITH ASSISTANCE. PT DENIES ANY PAIN. NO NEEDS ARE VERBALIZED AT THIS TIME. WILL CONTINUE TO MONITOR. SIDE RAILS ARE UP X 2. BED IS IN LOWEST POSITION. CALL LIGHT IS WITHIN REACH.
--- NOTE | 2017-05-06 21:31 | NUR ---
ADMIT ASSESSMENT COMPLETED. IV FLUIDS HOOKED UP PER ORDER. ANTIBIOTIC ADMINISTERED PER ORDER. PT REQUESTING PRN RESTORIL. ADMINISTERED PER ORDER. DENIES FURTHER NEEDS. WILL MONITOR. SIDE RAILS X 2. BED LOW. CALL LIGHT IN REACH.
[2017-05-06 22:52] VITALS: BP 173/57; BMI 23.8
[2017-05-07] MEDS ORDERED: VIBRAMYCIN 100100 MG PO (03:28)
[2017-05-07] MEDS ORDERED: NYSTATIN1 PWD TOPICAL (03:31)
[2017-05-07] MEDS ORDERED: MUCINEX600 MG PO (03:31)
[2017-05-07] MEDS ORDERED: OCUFLOX 0.3 % OP5 ML EACH EYE (03:34)
[2017-05-07] MEDS ORDERED: PROMOD LIQUID P30 M1 PO (03:36)
[2017-05-07] MEDS ORDERED: PHENERGAN25 M1 PO (03:39)
[2017-05-07] MEDS ORDERED: SENOKOT-S TABLE1 TAB PO (03:40)
[2017-05-07] MEDS ORDERED: ACETAMINOPHEN325 MG PO ×2 (03:41→03:42)
[2017-05-07 04:00] VITALS: BP 176/85
[2017-05-07 06:21] LABS: ANION GAP 20.2 mmol/L (8-16); CALCIUM 8.2 mg/dL (8.5-10.1); CARBON DIOXIDE 18.2 mmol/L (21.0-32.0); CREATININE - SERUM 1.1 mg/dL (0.6-1.3)
[2017-05-07 06:22] LABS: POTASSIUM - SERUM 4.4 mmol/L (3.5-5.1)
[2017-05-07 06:47] LABS: BASOPHILS 0.5 % (0-2); EOSINOPHILS 2.2 % (0-7); HEMATOCRIT 42.4 % (36.0-48.0); HEMOGLOBIN 13.4 g/dL (12-16); IMMATURE GRANULOCYTES 1.6 % (0-5); LYMPHOCYTES 29.9 % (15-50); MCH 29.8 pg (26.0-34.0); MCHC 31.6 g/dL (31.0-37.0); MCV 94.2 fL (80.0-100.0); MEAN PLATELET VOLUME 9.7 fL (7.4-10.4); MONOCYTES 14.1 % (2-11); NEUTROPHILS 51.7 % (40-80); PLATELET COUNT 202 10x3/uL (130-400); RDW 28.8 % (11.5-14.5); WBC 5.5 10x3/uL (4.8-10.8)
--- NOTE | 2017-05-07 08:00 | NUR ---
PT AOX4 RESP EVEN AND NONLABORED PT DENIES NEEDS AT THIS TIME SRX2 BED AT LOWEST SETTING CALL LIGHT WITHIN REACH WILL CONTINUE TO MONITOR IV TO LEFT FOREARM PATENT AND INTACT
[2017-05-07 08:31] VITALS: BP 145/49
--- NOTE | 2017-05-07 09:20 | NUR ---
Patient Name: JARRELL HARRELL Admission Status: ER Accout number: [id number] Admission Date: 05-06-2017 : 1935 Admission Diagnosis:NAUSEA WITH VOMITING, UNSPECIFIED Attending: TIMI Current LOS: 1 Anticipated DC Date: 05-11-2017 Planned Disposition: Home with Home Health Primary Insurance: MEDICARE A & B Discharge Planning Comments: CM MET WITH PATEINT AND SPOUSE (DEIDRE MARIA) REGARDING D/C NEEDS AND PLANS. SPOUSE STATED HE WILL DRIVE PATIENT HOME AT DISCHARGE AND THERE ARE NO STEPS OR STAIRS AT THEIR HOME. PATIENT NEEDS HELP WITH AMBULATION, MEDICATION, AND SPOUSE GOES IN BATHROOM WHEN SHE SHOWERS TO HELP HER IF NEEDED. PATIENT HAS A ROLATOR WALKER, CANE, AND BUILT IN SHOWER CHAIR. PATIENTS PCP IS DR. HAIR AND PHARMACY IS [facility] IN THE [facility]. PATIENT IS CURRENT WITH [facility] AND HAS SIGNED WITH RIGHT AT HOME FOR EXTRA HELP. CM WILL CONTINUE TO FOLLOW PATIENT WITH D/C NEEDS AND PLANS. PCP DR. HAIR [facility]- [phone] DEIDRE (SPOUSE) [phone] Production Gear Cutter: Tamiko Starks Is the patient Alert and Oriented? Yes 0 * How many steps to enter\exit or inside your home? 0 0 * PCP DR. HAIR 0 * Pharmacy [facility] 0 * Preadmission Environment Home with Family 0 * ADLs Independent 0 * Equipment Cane 0 * Other Equipment ROLATOR, AND BUILT IN SHOWER BENCH 0 * List name and contact numbers for known caregivers / representatives who currently or will assist patient after discharge: DEIDRE MARIA [phone] 0 * Community resources currently utilized Home Health Other 0 * Please name any agencies selected above. [employer] [facility] PATIENT HAS ALSO SIGNED WITH [facility] HOME 0 * Additional services required to return to the preadmission environment? Yes 0 * Can the patient safely return to the preadmission environment? Yes 0 * Has this patient been hospitalized within the prior 30 days at any hospital? Yes 0 Grand Total: 0
[2017-05-07 10:44] VITALS: Ht 157.5 cm; Wt 59.0 kg
[2017-05-07 15:47] VITALS: BP 157/64
[2017-05-07 19:50] VITALS: BP 172/61
[2017-05-08 00:05] VITALS: BP 126/57
--- NOTE | 2017-05-08 01:30 | NUR ---
2000)REC'D. IN BED PLACED ON BEDPAN REQUESTED TO VOID.ACEWRAP DRSG. REMAIN INTACT LOWER EXT. X2.DENIES ANY OTHER COMPLAINTS AT PRESENT TIME.WILL CONTINUE TO MONITOR FOR ANY CHGES. IN CURRENT STATUS AND FOLLOW CURRENT PLAN OF CARE
--- NOTE | 2017-05-08 03:43 | NUR ---
PT RESTING QUIETLY, EYES CLOSED. RESP EASY, UNLABORED. NO DISTRESS NOTED. CONTINUE TOOL AND EQUIPMENT RENTAL CLERK'S PLAN OF CARE.
[2017-05-08 04:00] VITALS: BP 144/53
[2017-05-08 05:41] LABS: BASOPHILS 0.3 % (0-2); EOSINOPHILS 3.1 % (0-7); HEMATOCRIT 38.4 % (36.0-48.0); HEMOGLOBIN 12.4 g/dL (12-16); LYMPHOCYTES 32.6 % (15-50); MCH 30.1 pg (26.0-34.0); MCHC 32.3 g/dL (31.0-37.0); MCV 93.2 fL (80.0-100.0); MEAN PLATELET VOLUME 9.7 fL (7.4-10.4); MONOCYTES 16.5 % (2-11); NEUTROPHILS 46.5 % (40-80); RBC 4.12 10x6/uL (4.00-5.40); RDW 28.2 % (11.5-14.5); WBC 6.1 10x3/uL (4.8-10.8)
[2017-05-08 05:43] LABS: PLATELET COUNT 344 10x3/uL (130-400)
[2017-05-08 06:03] LABS: ALBUMIN 2.1 g/dL (3.4-5.0); BILIRUBIN - TOTAL 1.29 mg/dL (0.2-1.3); CALCIUM 7.8 mg/dL (8.5-10.1); CARBON DIOXIDE 20.9 mmol/L (21.0-32.0); CREATININE - SERUM 1.2 mg/dL (0.6-1.3); POTASSIUM - SERUM 3.9 mmol/L (3.5-5.1); PROTEIN - SERUM 5.9 g/dL (6.4-8.2)
--- NOTE | 2017-05-08 07:52 | NUR ---
PT AOX4 RESP EVEN AND NONLABORED PT DENIES NEEDS AT THIS TIME IV TO LEFT FOREARM PATENT AND INTACT AT THIS TIME SRX2 BED AT LOWEST POSITION AND CALL LIGHT WITHIN REACH FAMILY AT BEDSIDE
[2017-05-08 07:55] VITALS: BP 155/60
[2017-05-08 12:17] VITALS: BP 176/55
--- NOTE | 2017-05-08 14:35 | NUR ---
REHAB PRESCREENING Rehab referral received and chart reviewed. Ms. Childress is a good candidate for Acute Rehab Unit. We are happy to accept her and will begin paper screen. She will be ready for admission to rehab when approvals are in place and her physician feels she is appropriate for discharge. Thank you for this referral! Ruth Cano, MEDICAL LAB DIRECTOR [facility]
--- NOTE | 2017-05-08 18:26 | NUR ---
PT REPORT GIVEN TO INPATIENT REHAB AT THIS TIME
--- NOTE | 2017-05-08 20:39 | NUR ---
1999) to rehab via w/c.
--- NOTE | 2017-05-11 07:03 | NUR ---
LATE ENTRY: PATIENT DISCHARGED TO IP REHAB ON 05/08/17
== END 2017-05-08 20:00 | DRG 392 ==
LOC: D.ER 12:34 → D.MS 18:15
PROVIDERS: Emergency Medicine; ADMIT Family Medicine
DX: R19.7 Diarrhea, unspecified (principal); I50.32 Chronic diastolic (congestive) heart failure; E44.0 Moderate protein-calorie malnutrition; E86.0 Dehydration; R11.2 Nausea with vomiting, unspecified; R53.1 Weakness

== ENCOUNTER 2017-05-08 16:13 | Inpatient (IN) | payer MEDICARE, BC ==
[~2017-05-08] VITALS: Ht 157.5 cm; Wt 62.0 kg
[~2017-05-08 16:13] MED LIST changes: +ACETAMINOPHEN325 MG PO; +MUCINEX600 MG PO; +NYSTATIN1 PWD TOPICAL; +OCUFLOX 0.3 % OP5 ML EACH EYE; +PHENERGAN25 M1 PO; +PROMOD LIQUID P30 M1 PO; +SENOKOT-S TABLE1 TAB PO; +VIBRAMYCIN 100100 MG PO
--- NOTE | 2017-05-08 20:15 | NUR ---
RECEIVED PATIENT TO BED 1113A ACCOMPANIED BY MED-SURG COCOA BEAN ROASTER HELPER WHO ASSISTED PATIENT TO BR ON ARRIVAL AND THEN BACK INTO BED.
--- NOTE | 2017-05-08 22:00 | NUR ---
RESTING QUEITLY IN BED, EYES CLOSED.
--- NOTE | 2017-05-08 22:50 | NUR ---
CLEANSED AND CHANGED PATIENT FROM MODERATE BM INCONTINENCE IN BED. CHANGED HER GOWN AND PINK PAD AND APPLIED FRESH GOWN AND PULL-UP BRIEF. REPOSITIONED HER HIGHER UP IN BED.
[2017-05-08 23:20] VITALS: BP 159/106; BMI 26.8
--- NOTE | 2017-05-09 00:05 | NUR ---
REMAINS IN BED, HOB UP 40 DEGREES. NO DISTRESS EVIDENT.
--- NOTE | 2017-05-09 00:05 | NUR ---
ADMISSION ASSESSMENT AND HISTORY COMPLETE. ADMISSION DOCUMENTS SIGNED. ASSISTED PATIENT UP TO [facility] WHERE SHE HAD A LOOSE SLURRY LIKE, SMALL VOLUME BM AFTER SMALL UNFORMED BM INCONTINENCE IN HER PULL-UP. PATIENT REFUSED SCHEDULED DOXYCYCLINE 100MG TAB SAYING THAT DR. HAIR EARLIER TODAY TOLD HER SHE IS ALLERGIC TO ALL ANTIBIOTICS. HOWEVER SHE DID ACCEPT INSTILLATION OF OCCUFLOX EYE DROPS IN BOTH EYES. GAVE HER ULTRACET PO FOR PAIN (SEE EMAR), AND TEMAZEPAM 30MG PO FOR SLEEP.
--- NOTE | 2017-05-09 00:50 | NUR ---
PT BM INCONTINENCE, CLEAN AND CHANGE GOWN AND LINEN.
--- NOTE | 2017-05-09 02:05 | NUR ---
IN BED, EYES CLOSED. RESTING QUIETLY.
--- NOTE | 2017-05-09 04:40 | NUR ---
RESTING IN BED, EYES CLOSED. AUDIBLE RESPIRATIONS ARE REGULAR AND UNLABORED.
--- NOTE | 2017-05-09 05:35 | NUR ---
CONTINUES IN BED, EYES CLOSED.
[2017-05-09 06:17] LABS: BASOPHILS 0.4 % (0-2); EOSINOPHILS 2.3 % (0-7); HEMOGLOBIN 13.3 g/dL (12-16); IMMATURE GRANULOCYTES 1.2 % (0-5); LYMPHOCYTES 28.6 % (15-50); MCH 30.2 pg (26.0-34.0); MCHC 32.4 g/dL (31.0-37.0); MCV 93.2 fL (80.0-100.0); MEAN PLATELET VOLUME 9.8 fL (7.4-10.4); NEUTROPHILS 53.5 % (40-80); PLATELET COUNT 316 10x3/uL (130-400); RDW 27.9 % (11.5-14.5); WBC 7.4 10x3/uL (4.8-10.8)
[2017-05-09 06:36] LABS: ANION GAP 17.3 mmol/L (8-16); CALCIUM 8.1 mg/dL (8.5-10.1); CREATININE - SERUM 1.2 mg/dL (0.6-1.3); POTASSIUM - SERUM 4.3 mmol/L (3.5-5.1)
--- NOTE | 2017-05-09 07:42 | NUR ---
LYING IN BED RESTING. EASILY AROUSED WITH STIMULI. CALL LIGHT IN REACH. WILL CONTINUE TO MONITOR
[2017-05-09 08:00] VITALS: BP 146/70
--- NOTE | 2017-05-09 10:00 | NUR ---
IN GYM WITH THERAPIST
--- NOTE | 2017-05-09 12:00 | NUR ---
STARTED IV IN LEFT WRIST 22G ATTEMPT X2. DRESSING AND SWAB CAP INTACT. PT TOLERATED WELL.
[2017-05-09 14:48] VITALS: Ht 157.5 cm; Wt 62.0 kg
--- NOTE | 2017-05-09 16:00 | NUR ---
SITTING UP IN CHAIR VISITING WITH FAMILY. OFFERS NO COMPLAINTS. CALL LIGHT IN REACH
--- NOTE | 2017-05-09 18:19 | NUR ---
RESTING QUIETLY IN BED. NO S/S DISTRESS. CALL LIGHT IN REACH.
--- NOTE | 2017-05-09 19:55 | NUR ---
DAUGHTER TALK TO PT IN ROOM.
--- NOTE | 2017-05-09 21:20 | NUR ---
pt resting quietly, pulse ox difficult to obtain accurate reading especially when hands are cool. nail beds pink, lips show no s/s of cyanosis. pt states she feels well.
--- NOTE | 2017-05-09 23:47 | NUR ---
DAUGHTER TALK TO PT IN ROOM.
[2017-05-10 02:11] VITALS: BP 156/63
--- NOTE | 2017-05-10 04:17 | NUR ---
pt incontinent of soft stool, buttock and groin reddened, applied nystatin, butt cream, recommended leaving open to air, turned on right side.
--- NOTE | 2017-05-10 06:57 | NUR ---
RESTING QUIETLY IN BED. NO S/S DISTRESS. CALL LIGHT IN REACH
--- NOTE | 2017-05-10 07:30 | NUR ---
LYING IN BED EYES CLOSED RESTING. EASILY AROUSED WITH STIMULI. CALL LIGHT IN REACH. WILL CONTINUE TO MONTIOR.
[2017-05-10 08:00] VITALS: BP 167/50
--- NOTE | 2017-05-10 12:00 | NUR ---
SITTING UP IN BED VISITING FAMILY. CALL LIGHT IN REACH. WILL CONTINUE TO MONTIOR.
--- NOTE | 2017-05-10 12:30 | NUR ---
INFORMED PT LEFT WRIST IV INFILTRATED ABX WAS STOPPED ATTEMPTED TO RESITE IV IN RIGHT POSTERIOR SIDE FOREARM AND LEFT AC WITH NO SUCCESS. WILL CALL AUGUST AIRPORT OPERATIONS SUPERVISOR TO SEE IF SHE CAN HELP.
--- NOTE | 2017-05-10 17:15 | NUR ---
AUGUST RN (PIPE ORGAN MECHANIC APPRENTICE) SUCCESSFULLY STARTED IV IN RIGHT POSTERIOR WRIST 24G AFTER SEVERAL ATTEMPTS.ABX RESTARTED RUNNING OVER 4HRS.
--- NOTE | 2017-05-10 19:25 | NUR ---
RESET IV PUMP AFTER PATIENT SET OFF OCCLUSION ALARM DUE TO POSITION OF RIGHT WRIST. PATIENT DENIES CURRENT NEEDS.
--- NOTE | 2017-05-10 19:50 | NUR ---
SON TALK TO PT IN ROOM.
[2017-05-10 23:33] VITALS: BP 115/37
--- NOTE | 2017-05-11 00:34 | NUR ---
REST IN BED, EYE CLOSE, BED LOW, CALL LIGHT WITHIN REACH.
[2017-05-11 05:32] LABS: BASOPHILS 0.3 % (0-2); EOSINOPHILS 2.8 % (0-7); HEMATOCRIT 37.2 % (36.0-48.0); HEMOGLOBIN 12.2 g/dL (12-16); IMMATURE GRANULOCYTES 0.5 % (0-5); LYMPHOCYTES 24.5 % (15-50); MCHC 32.8 g/dL (31.0-37.0); MCV 91.4 fL (80.0-100.0); MEAN PLATELET VOLUME 9.7 fL (7.4-10.4); MONOCYTES 15.4 % (2-11); NEUTROPHILS 56.5 % (40-80); PLATELET COUNT 330 10x3/uL (130-400); RBC 4.07 10x6/uL (4.00-5.40); RDW 27.4 % (11.5-14.5); WBC 7.4 10x3/uL (4.8-10.8)
[2017-05-11 05:43] LABS: ANION GAP 16.2 mmol/L (8-16); CALCIUM 7.9 mg/dL (8.5-10.1); CARBON DIOXIDE 20.3 mmol/L (21.0-32.0); CREATININE - SERUM 1.2 mg/dL (0.6-1.3)
[2017-05-11 05:44] LABS: POTASSIUM - SERUM 3.5 mmol/L (3.5-5.1)
--- NOTE | 2017-05-11 07:16 | NUR ---
RESTING QUIETLY IN BED. NO S/S DISTRESS. CALL LIGHT IN REACH
[2017-05-11 08:44] VITALS: BP 159/60
--- NOTE | 2017-05-11 09:20 | NUR ---
PT AM MEDS ADMINISTERD. PT C/O PAIN TO IV SITE. WILL CONTACT VASCULAR NURSE
--- NOTE | 2017-05-11 11:01 | NUR ---
REBEKAH CORREA CALLED. MESSAGE LEFT.
--- NOTE | 2017-05-11 12:05 | NUR ---
NUTRITION MONITORING & EVAL CHART REVIEWED, PT VISIT. TOLERATING REG DIET, GOOD INTAKE BREAKFAST. RD FOLLOWING
--- NOTE | 2017-05-11 15:08 | NUR ---
PT REQ AND REC'D PRN PAIN MEDICATION. WCTM.
--- NOTE | 2017-05-11 20:05 | NUR ---
ASSISTED PT WITH BEDPAN.
--- NOTE | 2017-05-12 00:40 | NUR ---
IN BED, EYES CLOSED. NO EVIDENT DISCOMFORT.
[2017-05-12 02:03] VITALS: BP 158/64
--- NOTE | 2017-05-12 03:02 | NUR ---
REST IN BED QUIETLY, EYE CLOSE, BED LOW, CALL LIGHT WITHIN REACH.
[2017-05-12 08:00] VITALS: BP 149/50
--- NOTE | 2017-05-12 08:35 | NUR ---
PT AM MEDS ADMINISTERED. PT DENIES NEEDS. WCTM.
--- NOTE | 2017-05-12 12:15 | NUR ---
PT IV TO LEFT UE NOLONGER GOOD. IV DC'D CATHETER INTACT. WILL NOTIFY REBEKAH TO ASSESS FOR NEW IV SITE.
--- NOTE | 2017-05-12 14:48 | NUR ---
VASCULAR NURSE PLACED PERIPHERAL IV TO LEFT FOREARM X1 STICK. PT TOLERATED WELL.
--- NOTE | 2017-05-12 17:43 | NUR ---
PT SCARED TO MOVE ARM WITH NEW IV SITE. REFUSING TO EAT DINNER AT THIS TIME. PT IS ENCOURAGED TO DRINK BOOST. PT STATES SHE WILL TRY TO EAT DINNER LATER. WCTM.
[2017-05-12 19:30] VITALS: BP 144/65
--- NOTE | 2017-05-12 21:10 | NUR ---
ASSESSMENT AND HS MEDS COMPLETE. FLUSHED LEFT FOREARM S/L ON COMPLETION OF DOXYCYCLINE INFUSION. NEW S/L REMAINS PATENT. DEFERRED APPLICATION OF NYSTATIN POWDER IT IS NOT AVAILABLE UNTIL PHARMACY DELIVERS IT TONIGHT. TOLD PATIENT WE WILL APPLY IT THE NEXT TIME SHE IS UP TO THE FOR TOILETING.
--- NOTE | 2017-05-12 22:15 | NUR ---
RESTING QUEITLY IN BED, EYES CLOSED.
--- NOTE | 2017-05-13 00:25 | NUR ---
RESTING QUIETLY IN BED, EYES CLOSED.
--- NOTE | 2017-05-13 02:00 | NUR ---
REMAINS IN BED, EYES CLOSED. NO APPARENT DISTRESS.
--- NOTE | 2017-05-13 03:15 | NUR ---
ASSISTED PATIENT UP TO BR TO URINATE, AND CHANGE PULL-UP DUE TO TEAR IN MATERIAL. REMAINS CONTINENT TONIGHT. ON RETURN TO BED, C/O PAIN LEVEL OF 8/10 IN SHOULDERS AND BACK OF NECK. GAVE HER ULTRACET X1 TAB PO. FLUSHED LEFT FOREARM S/L--IT IS ALREADY GETTING SLUGGISH AND STARTED IV DOXYCYCLINE 100MG IN 250ML TO RUN OVER 3 HOURS PER PUMP. SLOW RATE IS NECESSITATED BY SMALL IV CATH AND POOR CONDITION OF VEIN. THIS ACCESS WAS JUST PUT IN LATE ON DAY SHIFT BY THE HOSPITAL'S IV NURSE. WILL MONITOR CAREFULLY FOR SX INFILTRATION. SO FARE WE ARE NOT GETTING MORE THAN 3 INFUSIONS BEFORE PATIENT MUST BE RE-SITED DUE TO LOSS OF PATENCY. AFTER THIS DOSE SHE WILL HAVE ONLY 2 REMAINING. EDEMA IN BILAT LE'S IS SOMEWHAT IMPROVED SNCE RE-WRAPPING HER LEGS AND ELEVATING THEM ABOVE HEART LEVEL SINCE 2109 MED PASS AND ASSESSMENT.
--- NOTE | 2017-05-13 04:45 | NUR ---
PATIENT JUST AWAKENED. DOXYCYCLINE IV CONTINUES TO INFUSE @ 86.2ML/HR RATE. NO SX INFILTRATION. NO DISCOMFORT REPORTED BY PATIENT.
[2017-05-13 06:11] LABS: BASOPHILS 0.3 % (0-2); EOSINOPHILS 3.4 % (0-7); HEMOGLOBIN 12.5 g/dL (12-16); LYMPHOCYTES 26.3 % (15-50); MCH 29.8 pg (26.0-34.0); MCHC 32.9 g/dL (31.0-37.0); MCV 90.7 fL (80.0-100.0); MEAN PLATELET VOLUME 9.7 fL (7.4-10.4); PLATELET COUNT 299 10x3/uL (130-400); RBC 4.19 10x6/uL (4.00-5.40); RDW 26.8 % (11.5-14.5); WBC 7.1 10x3/uL (4.8-10.8)
[2017-05-13 06:16] LABS: ANION GAP 17.4 mmol/L (8-16); CALCIUM 7.6 mg/dL (8.5-10.1); CARBON DIOXIDE 19.4 mmol/L (21.0-32.0); CREATININE - SERUM 1.2 mg/dL (0.6-1.3); POTASSIUM - SERUM 3.8 mmol/L (3.5-5.1)
--- NOTE | 2017-05-13 06:45 | NUR ---
ADDED 30 ML TO VTBI ON PUMP. CONTINUES @ 86.2ML FLOW RATE.
[2017-05-13 08:14] VITALS: BP 140/50
--- NOTE | 2017-05-13 09:00 | NUR ---
PT AM MEDS ADMINSTERED. PT GETTING READY FOR OT, DENIES NEEDS. WCTM.
--- NOTE | 2017-05-13 09:38 | NUR ---
PT IV TO LEFT FOREARM INFILTRATED. IV REMOVED, CATHETER INTACT. WCTM.
--- NOTE | 2017-05-13 10:43 | NUR ---
PT RESTING IN BED, SPOUSE AT BEDSIDE. PT DENIES NEEDS. WCTM.
[2017-05-13 19:20] VITALS: BP 146/57
--- NOTE | 2017-05-13 19:20 | NUR ---
ASSESSMENT PER FLOW SHEET, VS OBTAINED, MID LINE IV IN RIGHT UPPER INTACT WITH NO REDNESS OR EDEMA INFUSING NS AT 10ML/HR, WILL SALINE LOCK SHORTLY, PT C/O NECK AND SHOULDER PAIN, INFORMED PT THAT I WILL CHECK ON PAIN MED AND ADM WHEN DUE, PT VERBALIZES UNDERSTANDING, PT REPORTS FLATUS, NO BM, PT'S ROOM CLEANED UP, DINNER TRAY AND TRASH REMOVED, PT DENIES NEEDS AT THIS TIME
--- NOTE | 2017-05-13 20:46 | NUR ---
PT PACK TRAIN DRIVER LIGHT, PT UP TO BR VIA WC WITH ASSISTANCE, PT TO COMMODE, PT VOIDED AND HAD BM, ASSISTED PT WITH BETTE CARE, PT TO SINK TO WASH HANDS, PT BACK TO BED, ADM 2100 MEDS AND PAIN MED PER MD ORDERS, SEE EMAR, WITH FRESH H20, PT HAD SNACK, PT REQUESTED FEET TO BE ELEVATED, FEET ELEVATED ON PILLOW, EXTRA BLANKET PROVIDED, PT DENIES FURTHER NEEDS
--- NOTE | 2017-05-13 21:30 | NUR ---
PT RESTING WITH EYES CLOSED, RESP QUIET, NO DISTRESS NOTED LEFT UNDISTURBED AT THIS TIME
--- NOTE | 2017-05-13 21:33 | NUR ---
PT RESTING WITH EYES CLOSED, RESP QUIET, NO DISTRESS NOTED, LEFT UNDISTURBED AT THIS TIME
--- NOTE | 2017-05-14 00:35 | NUR ---
PT RESTING WITH EYES CLOSED, RESP QUIET, NO DISTRESS NOTED, LEFT UNDISTURBED AT THIS TIME
--- NOTE | 2017-05-14 02:20 | NUR ---
PT AWAKE, PT UP TO BR VIA WC WITH ASSISTANCE, PT TO COMMODE, VOIDED AND HAD BM, ASSISTED PT WITH BETTE CARE, PT TO SINK, WASHES HANDS, PT TO BED, FEET ELEVATED ON PILLOW, REQUESTED AND SERVED FRESH H20, PT DENIES FURTHER NEEDS OR PAIN, BED IN LOW POSITION, SIDE RAILS X 2, CALL LIGHT IN REACH
--- NOTE | 2017-05-14 04:22 | NUR ---
PT RESTING WITH EYES CLOSED, AROUSES TO SOFT VERBAL STIMUALTION, SALINE LOCK CONVERTED TO IV, LINE FLUSHED WELL, NS RESTARTED AT 25 ML/HR, VIBRAMYCIN HUNG IVPB PER MD ORDERS, SEE EMAR, PT DENIES NEEDS OR PAIN AT THIS TIME
--- NOTE | 2017-05-14 06:35 | NUR ---
PT AWAKE, ADM 0600 MEDS PER MD ORDERS, SEE EMAR, PT UP TO BR VIA WC WITH ASSISTANCE, PT INST TO USE CALL LIGHT WHEN FINISHED, PT VERBALIZES UNDERSTANDING
--- NOTE | 2017-05-14 06:45 | NUR ---
KNITTING MACHINE TENDER TO ROOM TO ASSIST PT
--- NOTE | 2017-05-14 07:00 | NUR ---
SHIFT REPORT TO DAY SHIFT
--- NOTE | 2017-05-14 07:25 | NUR ---
SITTING UP IN BED RESTING. C/O OF BLE PAIN ACHING 5/10 REQUEST PAIN MEDS. NO OTHER NEEDS VOICED. CALL LIGHT IN REACH. WILL CONTINUE TO MONITOR
--- NOTE | 2017-05-14 07:35 | NUR ---
RESTING QUIETLY IN BED. NO S/S DISTRESS OR NEEDS. CALL LIGHT IN REACH
[2017-05-14 08:16] VITALS: BP 171/49
--- NOTE | 2017-05-14 11:03 | NUR ---
in therapy gym participating in physical therapy. offers no complaints. crushed meds and put in chocolate pudding pt tolerated well. will continue to monitor
--- NOTE | 2017-05-14 12:37 | NUR ---
C/O BLE PAIN /10 REQUESTS PAIN MEDICATION. ADMINISTERED ULTRAM PER PT REQUESTS. IS AT BEDSIDE. NO OTHER CONCERNS VOICED. CALL LIGHT IN REACH. WILL CONTINUE TO MONITOR
--- NOTE | 2017-05-14 13:16 | NUR ---
Nutrition Follow Up: Chart reviewed. Pt is eating 46% meal avg on a regular diet. She is receiving Ensure TID. +BM 05/14/17. Labs reviewed. Meds noted including Lasix. Rec continue current diet, supplement regimen. RD following.
--- NOTE | 2017-05-14 15:36 | NUR ---
LYING IN BED EYES CLOSED RESTING QUIETLY. APPROPRIATE RISE AND FALL OF CHEST. EASILY AROUSED WITH STIMULI. CALL LIGHT IN REACH. WILL CONTINUE TO MONITOR
--- NOTE | 2017-05-14 16:45 | NUR ---
DRESSED RIGHT UPPER THIGH WITH 2 ABD PADS AND CURLEX DUE TO EXCESSIVE WEEPING. TOLERATED WELL. OFFERS NO OTHER COMPLAINTS AT THIS TIME. DRESSING SIGNED, DATED AND TIMED. CALL LIGHT IN REACH. WILL CONTINUE TO MONITOR
--- NOTE | 2017-05-14 17:14 | NUR ---
SITTING UP IN BED EATING DINNER. OFFERS NO COMPLAINTS. CALL LIGHT IN REACH
[2017-05-14 19:35] VITALS: BP 150/65
--- NOTE | 2017-05-14 19:35 | NUR ---
PM ROUNDS MADE, VS OBTAINED, PT UP TO BR VIA WC WITH ASSISTANCE, VOIDED AND HAD BM WITH NO DIFFICULTY, PT TO SINK, WASHES HANDS, PT BACK TO BED, DRESSING REAPPLIED TO RIGHT UPPER THIGH, FEET ELEVATED, REQUESTED AND SERVED FRESH H20, DENIES FURTHER NEEDS, BED IN LOW POSITION, SIDE RAILS X 2, CALL LIGHT IN REACH
--- NOTE | 2017-05-14 20:30 | NUR ---
PT WATCHING TV, DENIES NEEDS AT THIS TIME
--- NOTE | 2017-05-14 21:11 | NUR ---
PT AWAKE, ADM 2100 MEDS PER MD ORDERS, SEE EMAR, PT REQUESTS TO TAKE RESTORIL A LITTLE LATER, INST PT TO LET ME KNOW WHEN SHE IS READY FOR IT, PT VERBALIZES UNDERSTANDING, FRESH H20 SERVED, PT HAD SNACK, DENIES FURTHER NEEDS AT THIS TIME
--- NOTE | 2017-05-14 22:12 | NUR ---
PT AWAKE, PT REQUESTED RESTORIL, ADM PER MD ORDERS, SEE EMAR, PT DENIES FURTHER NEEDS
--- NOTE | 2017-05-15 00:28 | NUR ---
PT GRILL PREP COOK LIGHT, PT PLACED ON BED JUSTICE, HAD SMALL BM AND VOIDED BY SELF WITH NO DIFFICULTY, PT REMOVED FROM BED JUSTICE, BETTE CARE DONE WITH WET WARM WIPES, BRIEFS APPLIED, BLUE CHUX AND PINK PAD CHANGED, PT C/O WALDROP, ADM TYLENOL PO PER MD ORDERS, SEE EMAR, PT DENIES FURTHER NEEDS
--- NOTE | 2017-05-15 02:02 | NUR ---
PT RESTING WITH EYES CLOSED, RESP QUIET, NO DISTRESS NOTED, LEFT UNDISTURBED AT THIS TIME
--- NOTE | 2017-05-15 04:15 | NUR ---
PT RESTING WITH EYES CLOSED, RESP QUIET, NO DISTRESS NOTED, LEFT UNDISTURBED AT THIS TIME
--- NOTE | 2017-05-15 05:47 | NUR ---
PT AWAKE, ADM 0600 MEDS PER MD ORDERS, SEE EMAR, PT UP TO BR VIA WC WITH ASSISTANCE, PT VOIDED AND HAD BM, PT CLEANED UP WITH WET WIPES, DRESSING TO RIGHT LEG REAPPLIED, PT BACK TO BED, LEGS ELEVATED, PT DENIES FURTHER NEEDS
--- NOTE | 2017-05-15 06:38 | NUR ---
PT WEIGHED VIA BEDSCALE, PT REPORTS PAIN IS GETTING BETTER, DENIES NEEDS
--- NOTE | 2017-05-15 07:00 | NUR ---
SHIFT REPORT TO DAY SHIFT
--- NOTE | 2017-05-15 07:12 | NUR ---
RESTING QUIETLY IN BED. EYES CLOSED. NO S/S DISTRESS OR NEEDS. CALL LIGHT IN REACH.
--- NOTE | 2017-05-15 07:40 | NUR ---
LYING IN BED RESTING. AT BEDSIDE. OFFERS NO COMPLAINTS. CALL LIGHT IN REACH.
[2017-05-15 08:03] VITALS: BP 133/53
[2017-05-15 08:05] LABS: BASOPHILS 0.3 % (0-2); EOSINOPHILS 2.1 % (0-7); HEMATOCRIT 36.5 % (36.0-48.0); HEMOGLOBIN 12.3 g/dL (12-16); IMMATURE GRANULOCYTES 0.9 % (0-5); LYMPHOCYTES 24.2 % (15-50); MCH 29.9 pg (26.0-34.0); MCHC 33.7 g/dL (31.0-37.0); MCV 88.6 fL (80.0-100.0); MEAN PLATELET VOLUME 9.6 fL (7.4-10.4); MONOCYTES 17.1 % (2-11); NEUTROPHILS 55.4 % (40-80); PLATELET COUNT 335 10x3/uL (130-400); RBC 4.12 10x6/uL (4.00-5.40)
[2017-05-15 08:47] LABS: ANION GAP 16.2 mmol/L (8-16); CARBON DIOXIDE 23.3 mmol/L (21.0-32.0); CREATININE - SERUM 1.2 mg/dL (0.6-1.3); POTASSIUM - SERUM 3.5 mmol/L (3.5-5.1)
--- NOTE | 2017-05-15 09:26 | NUR ---
CALLED DR. SCANLON OFFICE IN REGARDS TO CONSULT, SPOKE TO GHADA GAVE INFORMATION NEEDED TO SET UP CONSULT.
--- NOTE | 2017-05-15 09:53 | NUR ---
SITTING UP IN BED AT BEDSIDE. OFFERS NO COMPLAINTS. CALL LIGHT IN REACH.
--- NOTE | 2017-05-15 12:06 | NUR ---
IN THERAPY GYM WITH PHYSICAL THERAPY
--- NOTE | 2017-05-15 14:41 | NUR ---
sitting up in wheelchair. offers no complaints. call light in reach.
--- NOTE | 2017-05-15 17:39 | NUR ---
SITTING UP IN WHEELCHAIR EATING DINNER. OFFERS NO COMPLAINTS. CALL LIGHT IN REACH. WILL CONTINUE TO MONITOR
--- NOTE | 2017-05-15 19:00 | NUR ---
PT UP IN WC IN BATHROOM GETTING HER HAIR CUT PT HER MECHANICAL ENGINEERING MANAGER
[2017-05-15 19:45] VITALS: BP 115/52
--- NOTE | 2017-05-15 19:45 | NUR ---
PT BACK TO BED, ASSESSMENT PER FLOW SHEET, VS OBTAINED, PT REQUESTS PAIN MED WHEN DUE, INFORMED PT THAT I WILL CHECK ON IT AND BRING IT WHEN DUE, PT VERBALIZES UNDERSTANDING, BED IN LOW POSITION, SIDE RAILS X 2, CALL LIGHT IN REACH, BED ALARM ON AND WORKING PROPERLY
--- NOTE | 2017-05-15 20:30 | NUR ---
PT MILL MANAGER LIGHT, PT UP TO BR VIA WC WITH ASSISTANCE, PT VOIDED BY SELF WITH NO DIFFICULTY, PT TO SINK TO WASH HANDS, PT BACK TO BED, DENIES FURTHER NEEDS, BED IN LOW POSITION, SIDE RAILS X 2, CALL LIGHT IN REACH
--- NOTE | 2017-05-15 21:09 | NUR ---
PT AWAKE, ADM 2100 MEDS AND PAIN MED PER MD ORDERS, SEE EMAR, PT DENIES FURTHER NEEDS
--- NOTE | 2017-05-15 22:00 | NUR ---
PT SPEECH AND HEARING DIRECTOR LIGHT, PT INCONTINENT OF LOOSE BOWEL, PT UP TO BR VIA WC WITH ASSISTANCE, PT CONTINUED TO HAVE LOOSE STOOLS, ASSISTED PT SIT BETTE CARE, FRESH BRIEF PLACED ON, PT TO SINK TO WASH HANDS, PT BACK TO BED, BED IN LOW POSITION, SIDE RAILS X 2, CALL LIGHT IN REACH, BED ALARM ON AND WORKING PROPERLY
--- NOTE | 2017-05-15 22:40 | NUR ---
PT SCHOOL COOK LIGHT, PT INCONTENT OF BOWEL AGAIN, PT PLACED ON BED JUSTICE, INST TO USE CALL LIGHT WHEN FINISHED
--- NOTE | 2017-05-15 22:52 | NUR ---
PT DIRECTOR SAFETY LIGHT, PT FINISHED, PT REMOVED FROM BED JUSTICE, PT CLEANED UP WITH WET WARM WIPES, BUTT PASTE APPLIED, NYSTATIN TO GROIN AREA, BLUE CHUX CHANGED, ADULT BRIEF PLACED UNDER PT, PT DENIES FURTHER NEEDS, BED IN LOW POSITION, SIDE RAILS X 2, CALL LIGHT IN REACH
--- NOTE | 2017-05-15 23:25 | NUR ---
PT STOCK SORTER LIGHT, PT PLACED ON BED JUSTICE, PT INST TO USE CALL LIGHT WHEN FINISHED
--- NOTE | 2017-05-15 23:38 | NUR ---
PT AIR POLLUTION SPECIALIST LIGHT, PT REMOVED FROM BED JUSTICE, HAD LOOSE BM, PT CLEANED UP WITH WET WARM WIPES. BUTT PASTE AND NYSTATIN POWDER APPLIED, BRIEF PLACED UNDER PT, PT DENIES FURTHER NEEDS, BED IN LOW POSITION, SIDE RAILS X 2, CALL LIGHT IN REACH
--- NOTE | 2017-05-16 02:21 | NUR ---
PT RESTING WITH EYES CLOSED, RESP QUIET, NO DISTRESS NOTED, LEFT UNDISTURBED AT THIS TIME, BED IN LOW POSITION, SIDE RAILS X 2, CALL LIGHT IN REACH, BED ALARM ON AND WORKING PROPERLY
--- NOTE | 2017-05-16 05:41 | NUR ---
PT RESTING WITH EYES CLOSED, AROUSES TO SOFT VERBAL STIMULATION, ADM 0600 MED PER MD ORDERS, WITH FRESH H20, BRIEF CHANGED, BETTE CARE DONE WITH WET WIPES, BUTT PASTE APPLIED, PT REQUESTS PAIN MED
--- NOTE | 2017-05-16 05:53 | NUR ---
ADM PAIN MED PER MD ORDERS, SEE EMAR, BED IN LOW POSITION, SIDE RAILS X 2, CALL LIGHT IN REACH
--- NOTE | 2017-05-16 06:41 | NUR ---
SHIFT REPORT TO DAY SHIFT
--- NOTE | 2017-05-16 07:10 | NUR ---
LYING IN BED EYES CLOSED RESTING. EASILY AROUSED WITH STIMULI. CALL LIGHT IN REACH. WILL CONTINUE TO MONITOR
[2017-05-16 07:40] VITALS: BP 97/45
[2017-05-16 08:00] VITALS: BP 105/49
[2017-05-16 08:57] LABS: APPEARANCE HAZY (CLEAR); BILIRUBIN NEGATIVE (NEGATIVE); COLOR YELLOW (YELLOW); GLUCOSE NEGATIVE (NEGATIVE); KETONE NEGATIVE (NEGATIVE); LEUKOCYTE ESTERASE 1+ (NEGATIVE); NITRITE NEGATIVE (NEGATIVE); PROTEIN TRACE mg/dL (NEGATIVE); UROBILINOGEN NORMAL (NORMAL)
[2017-05-16 08:59] LABS: BACTERIA FEW /hpf (NONE SEEN); EPITHELIAL CELLS 0-5 /hpf (0-5); RED CELLS - URINE 0-5 /hpf (0-5)
--- NOTE | 2017-05-16 10:00 | NUR ---
ADMINISTERED MORNING MEDS WITHOUT DIFFICULTY. OFFERS NO CONCERNS. CALL LIGHT IN REACH. WILL CONTINUE TO MONITOR
--- NOTE | 2017-05-16 12:20 | NUR ---
SITTING UP IN BED EATING LUNCH. AT BEDSIDE. OFFERS NO COMPLAINTS. CALL LIGHT IN REACH. WILL CONTINUE TO MONITOR
--- NOTE | 2017-05-16 14:22 | NUR ---
LYING IN BED EYES CLOSED RESTING. APPROPRIATE RISE AND FALL OF CHEST. NO S/SX OF DISTRESS. CALL LIGHT IN REACH. NO FAMILY AT BEDSIDE. WILL CONTINUE TO MONITOR
--- NOTE | 2017-05-16 15:00 | NUR ---
RESP EASY AND REGULAR.NAPPING.CL IN REACH.
--- NOTE | 2017-05-16 15:00 | NUR ---
SITTING UP IN WC.DENIES NEEDS.
--- NOTE | 2017-05-16 18:46 | NUR ---
LYING IN BED RESTING. OFFERS NO COMPLAINTS. CALL LIGHT IN REACH
--- NOTE | 2017-05-16 19:15 | NUR ---
PT. IN BED WITH HOB SLIGHTLY ELEVATED. RUE PIC LINE SITE ASSESSED BY ON-COMING NURSE, LYNDSEY ROLLINS LPN, THOUGHT IT LOOKED INFECTED SO DAY SHIFT NURSE, WHO HAD PT. TODAY, CAME INTO ROOM FOR ASSESSMENT AND ISAÍAS RODRIGUEZ RN, STATED THAT HER RUE LOOKED MUCH BETTER TODAY THEN IT HAD BEEN LOOKING AND THE DISCOLORATION HAD BEEN DUE TO NEEDLE STICKS PREVIOUS TO PIC LINE PLACEMENT. NURSE TO CONTINUE TO MONITOR AND REPORT ANY NEW PROBLEMS.
--- NOTE | 2017-05-16 21:29 | NUR ---
PT IS RESTING IN BED WITH EYE SOPEN. ALERT AND ORIENTED X 3. NO ACUTE DISTRESS NOTED. RIGHT ARM MIDLINE IV NOTED. SITE IS REDDENED AROUND THE ENTIRE AREA, BUT PT STATES IT IS IMPROVING SIGNIFICANTLY, AND PREVIOUS NURSE INFORMED ME THAT IT WAS CLEARING ALSO. PT DENIES DISCOMFORT AT THE SITE.TELEMETRY IS ON AND INTACT. DRESSING TO RIGHT THIGH IS CDI. NO DRAINAGE NOTED. BLE MELVIN WRAPS ARE ON AND INTACT. SR'S ARE UP X 3 IN BED. CALL LIGHT AND BEDSIDE TABLE ARE WITHIN EASY REACH.
--- NOTE | 2017-05-17 00:27 | NUR ---
PT AWOKE COMPLAINING OF MELVIN WRAPS HURTING HER LEGS. WRAPS REMOVED, AND PILLOWS REMAIN ELEVATED ON PILLOWS. WILL REPLACE MELVIN WRAPS IN AM.
--- NOTE | 2017-05-17 03:02 | NUR ---
RESTING IN BED WITH EYES CLOSED.
[2017-05-17 07:30] VITALS: BP 105/50
--- NOTE | 2017-05-17 07:40 | NUR ---
LYING IN BED C/O PAIN IN RIGHT LEG AND ANKLE AND REQUEST PAIN MEDS. WILL CK WHEN LAST DOSE WAS GIVEN. CALL LIGHT IN REACH. WILL CONTINUE TO MONITOR
--- NOTE | 2017-05-17 14:00 | NUR ---
SITTING UP IN BED EATING LUNCH. AT BEDSIDE. OFFERS NO COMPLAINTS. CALL LIGHT IN REACH. WILL CONTINUE TO MONITOR
--- NOTE | 2017-05-17 16:10 | NUR ---
SITTING UP IN BED LOOKING AT IPAD. DAUGHTER AT BEDSIDE. OFFERS NO COMPLAINTS. CALL LIGHT IN REACH. WILL CONTINUE TO MONITOR
--- NOTE | 2017-05-17 17:00 | NUR ---
RESTING QUIETLY.CL IN REACH.
--- NOTE | 2017-05-17 18:07 | NUR ---
SITTING UP IN W/C FAMILY AT BEDSIDE. OFFERS NO COMPLAINTS. CALL LIGHT IN REACH. WILL CONTINUE TO MONITOR
--- NOTE | 2017-05-17 19:15 | NUR ---
PT. IN BED WITH HOB UP FOR COMFORT AND HER DAUGHTER IS VISITING. NO VOICED NEEDS AT THIS TIME AND HER CALL LIGHT IS WITHIN REACH.
--- NOTE | 2017-05-17 22:34 | NUR ---
PT IS RESTING QUIETLY IN BED WITH EYES CLOSED. NO DISTRESS NOTED. RIGHT ARM MIDLINE IV NOTED. DRESSING IS CDI. TELEMETRY UNIT IS ON AND INTACT. ASSISTED TO THE BATHROOM PRN. SR'S ARE UP X 2 IN BED. CALL LIGHT AND BEDSIDE TABLE ARE WITHIN EASY REACH.
--- NOTE | 2017-05-18 00:21 | NUR ---
RESTING IN BED WITH EYES CLOSED.
--- NOTE | 2017-05-18 03:00 | NUR ---
RESTING IN BED WITH EYES CLOSED.
[2017-05-18 05:45] LABS: BASOPHILS 0.2 % (0-2); EOSINOPHILS 2.2 % (0-7); HEMOGLOBIN 11.5 g/dL (12-16); IMMATURE GRANULOCYTES 0.7 % (0-5); LYMPHOCYTES 27.1 % (15-50); MCH 29.9 pg (26.0-34.0); MCHC 33.8 g/dL (31.0-37.0); MCV 88.5 fL (80.0-100.0); MEAN PLATELET VOLUME 9.4 fL (7.4-10.4); NEUTROPHILS 54.8 % (40-80); PLATELET COUNT 359 10x3/uL (130-400); RBC 3.84 10x6/uL (4.00-5.40); RDW 25.5 % (11.5-14.5); WBC 8.1 10x3/uL (4.8-10.8)
--- NOTE | 2017-05-18 06:09 | NUR ---
PT RESTING IN BED WITH EYES CLOSED. AWOKE EASILY TO VERBAL STIMULI. DENIES NEEDS. DAILY WEIGHT DONE.
[2017-05-18 06:52] LABS: ANION GAP 13.4 mmol/L (8-16); CALCIUM 8.2 mg/dL (8.5-10.1); CARBON DIOXIDE 24.3 mmol/L (21.0-32.0); CREATININE - SERUM 1.8 mg/dL (0.6-1.3); POTASSIUM - SERUM 3.7 mmol/L (3.5-5.1)
--- NOTE | 2017-05-18 08:28 | NUR ---
PT RESTING IN BED WITH EYES OPEN CALL LIGHT IN REACH NO PROBLEMS WILL MONITER
[2017-05-18 09:30] VITALS: BP 138/53
--- NOTE | 2017-05-18 17:55 | NUR ---
EATING SUPPER IN ROOM. DENIES NEEDS OR C/O. CALL LIGHT IN REACH
[2017-05-18 19:30] VITALS: BP 160/35
--- NOTE | 2017-05-18 19:30 | NUR ---
PT BRANCH MANAGER TRAINEE LIGHT, PT UP TO BR VIA WC WITH ASSISTANCE, PT HAD LOOSE BM, SPECIMEN COLLECTED, PT CLEANED UP WITH WET WARM WIPES, PT TO SINK TO WASH HANDS, PT BACK TO BED, REQUESTS PAIN MED AND IMMODIUM WHEN I ADM MEDS, INFORMED PT THAT I WILL, VS OBTAINED, ASSESSMENT PER FLOW SHEET, BED IN LOW POSITION, SIDE RAILS X 2, CALL LIGHT IN REACH
--- NOTE | 2017-05-18 20:10 | NUR ---
PT METER INSTALLER LIGHT, PT PLACED ON BED JUSTICE, HAD LOOSE BM, PT CLEANED UP WITH WET WARM WIPES, FRESH BRIEFS APPLIED, BLUE CHUX CHANGED
--- NOTE | 2017-05-18 21:00 | NUR ---
PT WIND TURBINE ERECTOR LIGHT, PT PLACED ON BED JUSTICE, PT HAD LOOSE BM, PT REMOVED FROM BED JUSTICE, PT CLEANED UP WITH WET WARM WIPES, BRIEFS LEFT OFF AT THIS TIME, BLUE CHUX CHANGED, INFORMED PT THAT I AM GETTING MEDS TOGETHER, PT VERBALIZES UNDERSTANDING, BED IN LOW POSITION, SIDE RAILS X 2, CALL LIGHT IN REACH
--- NOTE | 2017-05-18 21:22 | NUR ---
ADM 2100 MEDS PER MD ORDERS, SEE EMAR, BED IN LOW POSITION, SIDE RAILS X 2, CALL LIGHT IN REACH
--- NOTE | 2017-05-18 22:30 | NUR ---
PT RESTING WITH EYES CLOSED, RESP QUIET, NO DISTRESS NOTED, LEFT UNDISTURBED AT THIS TIME, BED IN LOW POSITION, SIDE RAILS X 2, CALL LIGHT IN REACH
--- NOTE | 2017-05-19 00:20 | NUR ---
PT RESTING WITH EYES CLOSED, RESP QUIET, NO DISTRESS NOTED, LEFT UNDISTURBED AT THIS TIME
--- NOTE | 2017-05-19 04:00 | NUR ---
PT PLACED ON BED JUSTICE PER TANGELA LYNN RN, PT HAD SMALL BM, REMOVED FROM BED JUSTICE, PT CLEANED UP WITH WET WARM WIPES, BLUE CHUX CHANGED, DENIES FURTHER NEEDS, BED IN LOW POSITION, SIDE RAILS X 2, CALL LIGHT IN REACH
--- NOTE | 2017-05-19 04:45 | NUR ---
PT BUNCHER MACHINE LIGHT, PT UP TO BR VIA WC WITH ASSISTANCE, PT VOIDED, BRIEFS APPLIED, PT BACK TO BED, DENIES FURTHER NEEDS
--- NOTE | 2017-05-19 06:03 | NUR ---
PT RESTING WITH EYES CLOSED, AROUSES TO SOFT VERBAL STIMULATION, BLE WRAPPED, ADM 0600 MEDS PER MD ORDERS, SEE EMAR, PT DENIES NEEDS AT THIS TIME
--- NOTE | 2017-05-19 07:00 | NUR ---
SHIFT REPORT TO DAY SHIFT
--- NOTE | 2017-05-19 07:45 | NUR ---
PT RESTING IN BED WITH EYES OPEN CALL LIGHT IN REACH WILL MONITER
--- NOTE | 2017-05-19 10:30 | NUR ---
PT REFUSED SHOWER AT BEDSIDE AND AWARE OF REFUSAL
--- NOTE | 2017-05-19 14:06 | NUR ---
Nutrition Follow Up: Pt is eating 31% meal avg on a regular diet. She is receiving Ensure with meals. Wt loss of 4# since admit. +BM 05/19/17. Labs reviewed. Meds noted including Megace, Lasix. Rec continue current diet, supplement regimen. Rec continue appetite stimulant. RD following.
--- NOTE | 2017-05-19 14:50 | NUR ---
PT ASSISTED TO BATHROOM PT HAD MEDIUM AMOUNT OF LOOSE DARK COLORED STOOL PT CLEANED AND DRYED AND PUT BACK TO BED CALL LIGHT IN REACH WILL MONITER
--- NOTE | 2017-05-19 17:05 | NUR ---
LATE ENTRY: PATIENT ADMITTED TO REHAB ON 05/08/17 FROM AC[address]LOOR[address]. HAIR IS HER PCP, SHE HAS USED [facility] FOR HOME THERAPY. DME AT HOME: BULIT IN BODY WORK AUTO TRIMMER CHAIR, WALKER, CANE. [facility] IS HER PHARMACY. WILL CONTINUE TO FOLLOW WITH PATIENT
--- NOTE | 2017-05-19 17:27 | NUR ---
PT RESTING IN BED WITH EYES OPEN CALL LIGHT IN REACH NO PROBLEMS WILL MONITER
[2017-05-19 19:25] VITALS: BP 129/33
--- NOTE | 2017-05-19 19:25 | NUR ---
PT SALES PROMOTION OFFICER LIGHT, PT UP TO BR VIA WC WITH ASSISTANCE, VOIDED AND HAD BM, ASSISTED PT WITH BETTE CARE, CALMOSEPTINE APPLIED TO BUTTOCK, FRESH BRIEFS PLACE ON, PT TO SINK, WASHES HANDS, PT BACK TO BED, ASSESSMENT PER FLOW SHEET, VS OBTAINED, MELVIN WRAP REAPPLIED, DRESSING PLACED ON RIGHT UPPER THIGH DUE TO WEEPING, PT REQUESTS PAIN MED AND SLEEPING PILL AT BEDTIME, REQUESTED AND SERVED FRESH H20, DENIES FURTHER NEEDS AT THIS TIME, BED IN LOW POSITION, SIDE RAILS X 2, CALL LIGHT IN REACH
--- NOTE | 2017-05-19 20:00 | NUR ---
PT TALKING ON PHONE AT THIS TIME
--- NOTE | 2017-05-19 21:58 | NUR ---
PT AWAKE, ADM 2100 MEDS, SLEEPING PILL AND PAIN PILL PER MD ORDERS, SEE EMAR, SNACK PROVIDED, PT DENIES FURTHER NEEDS, BED IN LOW POSITION, SIDE RAILS X 2, CALL LIGHT IN REACH
--- NOTE | 2017-05-19 22:30 | NUR ---
PT RESTING WITH EYES CLOSED, RESP QUIET, NO DISTRESS NOTED, LEFT UNDISTURBED AT THIS TIME
--- NOTE | 2017-05-20 05:18 | NUR ---
PT AWAKE, OBTAINED WEIGHT, ADM 0600 MEDS PER MD ORDERS, PT UP TO BR VIA WC WITH ASSISTANCE, PT VOIDED BY SELF WITH NO DIFFICULTY, PTS BRIEF DRY, PT TO SINK, WASHES HANDS, ASSISTED PT IN CHANGING SHIRTS, PT BACK TO BED, FEET ELEVATED, FRESH H20 SERVED, DENIES FURTHER NEEDS, BED IN LOW POSITION, SIDE RAILS X 2, CALL LIGHT IN REACH
--- NOTE | 2017-05-20 06:16 | NUR ---
PT AWAKE, ADM 0700 MED PER MD ORDERS, SEE EMAR, PT DENIES NEEDS OR PAIN AT THIS TIME, BED IN LOW POSITION, SIDE RAILS X 2, CALL LIGHT IN REACH
--- NOTE | 2017-05-20 06:48 | NUR ---
SHIFT REPORT TO DAY SHIFT
--- NOTE | 2017-05-20 07:25 | NUR ---
LYING IN BED EYES CLOSED RESTING. EASILY AROUSED WITH STIMULI, CALL LIGHT IN REACH. WILL CONTINUE TO MONITOR.
[2017-05-20 07:54] VITALS: BP 105/33
--- NOTE | 2017-05-20 08:36 | NUR ---
SITTING UP IN BED. ASSISTING WITH MEAL.DENIES NEEDS.
--- NOTE | 2017-05-20 09:06 | NUR ---
ADMINISTERED MORNING MEDS WITHOUT DIFFICULTY. AT BEDSIDE. OFFERS NO COMPLAINTS. CALL LIGHT IN REACH. WILL CONTINUE TO MONTIOR
--- NOTE | 2017-05-20 11:00 | NUR ---
SITTING UP IN BED RESTING COMFORTABLY. PT IS CONFUSED TO SITUATION AND VERY SLOW TO RESPOND. IS AT BEDSIDE. ADVISED CHARGE NURSE CARLITOS OF DECONDITIONING OF PT SO IT CAN BE ADDRESSED AT STAFF MEETING TODAY.
--- NOTE | 2017-05-20 12:49 | NUR ---
TRANSPORTED VIA BED OFF FLOOR BY IMAGING FOR CT
--- NOTE | 2017-05-20 13:01 | NUR ---
RECIEVED PT BACK ON FLOOR FROM IMAGING VIA BED.
--- NOTE | 2017-05-20 16:07 | NUR ---
SITTING UP IN WHEELCHAIR EATING HER LUNCH. FAMILY AT BEDSIDE. OFFERS NO COMPLAINTS. PT STILL FEELS WEAK, SKIN COLOR PALE. STILL LEANING TO RIGHT SIDE EVEN AFTER STRAIGHTENING HER POSTURE. WILL CONTINUE TO MONITOR
--- NOTE | 2017-05-20 20:05 | NUR ---
PT. SITTING UP IN CHAIR. ASSESSMENT COMPLETED. ASSISTED TO/FROM BR AND POSITIONED TO COMFORT. NO VOICED NEEDS AND HER CALL LIGHT IS WITHIN REACH.
[2017-05-20 20:30] VITALS: BP 143/46
--- NOTE | 2017-05-20 23:02 | NUR ---
PT. IN BED WITH HOB UP FOR COMFORT WITH EYES CLOSED AND RESP. DEEP AND EVEN. CALL LIGHT WITHIN REACH.
--- NOTE | 2017-05-21 03:01 | NUR ---
PT. IN BED WITH HOB UP FOR COMFORT WITH EYES CLOSED AND RESP. EVEN. CALL LIGHT WITHIN REACH.
--- NOTE | 2017-05-21 07:30 | NUR ---
LYING IN BED EYES CLOSED RESTING COMFORTABLY. APPROPRIATE RISE AND FALL OF CHEST. NO S/SX OF DISTRESS. CALL LIGHT IN REACH. WILL CONTINUE TO MONITOR
--- NOTE | 2017-05-21 08:00 | NUR ---
CL IN REACH.DENIES NEEDS.
[2017-05-21 08:29] VITALS: BP 114/62
--- NOTE | 2017-05-21 09:53 | NUR ---
ASSISTED TO RESTROOM AND BACK TO BED. OFFERS NO COMPLAINTS. AT BEDSIDE. CALL LIGHT IN REACH. WILL CONTINUE TO MONITOR
--- NOTE | 2017-05-21 10:46 | NUR ---
IN THERAPY GYM WITH OCCUPATIONAL THERAPY
--- NOTE | 2017-05-21 12:23 | NUR ---
SITTING UP IN WHEELCHAIR EATING LUNCH. AT BEDSIDE. CALL LIGHT IN REACH. WILL CONTINUE TO MONITOR
--- NOTE | 2017-05-21 14:11 | NUR ---
LYING IN BED RESTING COMFORTABLY. OFFERS NO COMPLAINTS. NO FAMILY AT BEDSIDE. CALL LIGHT IN REACH. WILL CONTINUE TO MONITOR
--- NOTE | 2017-05-21 16:15 | NUR ---
REMOVED OLD DRESSING FROM RIGHT UPPER MIDLINE. CLEANED AREA AND APPLIED NEW STERILE DRESSING DATE AND INITIAL. MIDLINE SITE WNL, NO REDNESS OR DRAINAGE. CALL LIGHT IN REACH. WILL CONTINUE TO MONITOR
--- NOTE | 2017-05-21 17:55 | NUR ---
SITTING UP IN WHEELCHAIR EATING DINNER. OFFERS NO COMPLAINTS. CALL LIGHT IN REACH. WILL CONTINUE TO MONITOR
--- NOTE | 2017-05-21 19:11 | NUR ---
PT. IN BED WITH HOB UP FOR COMFORT AND IS WATCHING TV. NO VOICED NEEDS AT THIS TIME AND HER CALL LIGHT IS WITHIN REACH.
--- NOTE | 2017-05-21 19:20 | NUR ---
FAMILY MEMBERS VISIT PT.
[2017-05-22 00:23] VITALS: BP 141/45
--- NOTE | 2017-05-22 03:00 | NUR ---
REST QUIETLY IN BED, EYE CLOSE, BED LOW, CALL LIGHT WITHIN REACH.
[2017-05-22 07:21] LABS: BASOPHILS 0.2 % (0-2); EOSINOPHILS 1.6 % (0-7); HEMATOCRIT 34.4 % (36.0-48.0); HEMOGLOBIN 11.4 g/dL (12-16); IMMATURE GRANULOCYTES 0.5 % (0-5); LYMPHOCYTES 17.1 % (15-50); MCH 30.2 pg (26.0-34.0); MCHC 33.1 g/dL (31.0-37.0); MEAN PLATELET VOLUME 9.5 fL (7.4-10.4); MONOCYTES 9.7 % (2-11); NEUTROPHILS 70.9 % (40-80); PLATELET COUNT 314 10x3/uL (130-400); RBC 3.78 10x6/uL (4.00-5.40); RDW 24.9 % (11.5-14.5); WBC 10.3 10x3/uL (4.8-10.8)
[2017-05-22 07:34] LABS: ANION GAP 14.8 mmol/L (8-16); CALCIUM 8.2 mg/dL (8.5-10.1); CARBON DIOXIDE 20.7 mmol/L (21.0-32.0); CREATININE - SERUM 1.6 mg/dL (0.6-1.3); POTASSIUM - SERUM 3.5 mmol/L (3.5-5.1)
[2017-05-22 08:00] VITALS: BP 158/48
--- NOTE | 2017-05-22 08:07 | NUR ---
UP TO BATHROOM WITH FILTER ASSEMBLER.BREAKFAST GIVEN.
--- NOTE | 2017-05-22 13:07 | NUR ---
PT RESTING IN BED AT BEDSIDE CALL LIGHT IN REACH NO PROBLEMS WILL MONITER
--- NOTE | 2017-05-22 18:04 | NUR ---
PT RESTING IN BED WITH EYES OPEN CALL LIGHT IN REACH WILL MONITER
--- NOTE | 2017-05-22 19:45 | NUR ---
REST IN BED, EYE OPEN, DENIES NEEDS, CALL LIGHT IN REACH.
--- NOTE | 2017-05-22 20:30 | NUR ---
ASSISTED PT TO BATHROOM AND BACK TO BED.
[2017-05-23 00:01] VITALS: BP 132/56
--- NOTE | 2017-05-23 04:20 | NUR ---
REST IN BED, EYE CLOSE, CALL LIGHT IN REACH.
--- NOTE | 2017-05-23 07:35 | NUR ---
PT RESTING IN BED WITH EYES OPEN CALL LIGHT IN REACH NO PROBLEMS WILL MONITER
[2017-05-23 08:00] VITALS: BP 141/52
--- NOTE | 2017-05-23 16:50 | NUR ---
PT RESTING IN BED WITH EYES OPEN CALL LIGHT IN REACH WILL MONITER
--- NOTE | 2017-05-23 18:21 | NUR ---
JUST FINISHED SUPPER. DENIES NEEDS. CALL LIGHT IN REACH
--- NOTE | 2017-05-23 19:45 | NUR ---
TALK TO DAUGHTER IN BEDSIDE.
[2017-05-23 23:17] VITALS: BP 160/65
--- NOTE | 2017-05-24 02:20 | NUR ---
REST IN BED, EYE CLOSE, BED LOW, CALL LIGHT IN REACH.
--- NOTE | 2017-05-24 03:55 | NUR ---
PT RESTING IN BED, AWAKE, DENIES NEEDS. WCTM.
--- NOTE | 2017-05-24 07:43 | NUR ---
PT IN BED WITH EYES CLOSED AND CHEST RISING. NO SIGN/SYMPTOM OF DISTRESS NOTED. EASILY AROUSED TO VERBAL STIMULI. CALL LIGHT IN REACH.
[2017-05-24 08:02] VITALS: BP 131/53
--- NOTE | 2017-05-24 12:05 | NUR ---
PT IN BED WITH EYES CLOSED AND CHEST RISING. COMPLAINS OF NAUSEA WITH SMALL EMESIS NOTED. ZOFRAN GIVEN PER ORDERS. NO OTHER CONCERNS NOTED. CALL LIGHT IN REACH.
--- NOTE | 2017-05-24 18:09 | NUR ---
SITTING UP EATING SUPPER. DENIES NEEDS. CALL LIGHT IN REACH
--- NOTE | 2017-05-24 18:20 | NUR ---
PT IN BED WITH EYES CLOSED AND CHEST RISING. NO SIGN/SYMPTOMS OF DISTRESS NOTED. CALL LIGHT IN REACH.
--- NOTE | 2017-05-24 21:10 | NUR ---
ASSISTED PT TO BATHROOM AND BACK TO BED.
--- NOTE | 2017-05-24 22:27 | NUR ---
SON AND GRANDDAUGHTER TALK TO PT AT BEDSIDE.
[2017-05-24 23:03] VITALS: BP 128/61
--- NOTE | 2017-05-25 02:45 | NUR ---
PT RESTING, EYES CLOSED. BED LOW. CL IN REACH.
--- NOTE | 2017-05-25 08:18 | NUR ---
SITTING UP EATING BREAKFAST. DENIES NEEDS. CALL LIGHT IN REACH
[2017-05-25] MEDS ORDERED: MYSOLINE 50 MG50 MG PO (08:54)
[2017-05-25] MEDS ORDERED: MULTAQ400 MG PO (08:54)
--- NOTE | 2017-05-25 08:56 | RHP ---
PATIENT: JARRELL HARRELL MEDICAL RECORD: [id number] ACCOUNT: [id number] LOCATION:[facility]1113 : 35 ADMISSION DATE: 05/08/17 REHABILITATION HISTORY AND PHYSICAL EXAMINATION POST ADMISSION PHYSICIAN EXAMINATION Post-Admission Physical Exam and History and Physical DATE OF ADMISSION TO THE REHAB: 05/08/2017 ADMITTING DIAGNOSIS: Debility. HISTORY OF PRESENT ILLNESS: The patient is an 81-year-old female patient admitted to the inpatient rehab secondary to debility caused by diarrhea, malnutrition, and dehydration. She was recently in a prolonged hospitalization, who presented to Emergency Department within 48 hours secondary to nausea and vomiting. She was hospitalized for pneumonia and resistant UTIs. She has been residing at the [facility]. She was recently on antibiotics again for UTI. She has been battling diarrhea prior to onset. Her prior level of functioning at [facility] was moderately independent with a rolling walker and was ambulating 160 feet. She is currently max assist with only able to ambulate 15 feet. She will require intensive therapy in order to return her to her prior level of functioning and hopefully return her back to home. COMORBIDITIES: In this patient include pleural effusion, atelectasis, cardiomegaly, atrial fib, CHF, syncope, renal insufficiency, frequent falls, diarrhea, dehydration, nausea and vomiting, diarrhea, malnutrition, weakness and neuropathy. PAST MEDICAL HISTORY: Significant for a history of thyroid problems, atrial fib, CHF, syncope, pneumonia, got a history of acid reflux, depression, dementia, anxiety. PAST SURGICAL HISTORY: Includes gallbladder surgery, hysterectomy, left nephrectomy, had mastectomy. She has had pacemaker placement and splenectomy. ALLERGIES: MEPERIDINE. CURRENT MEDICATIONS: Include Zoloft 100 mg daily. She is on Senna 2 tabs daily. She is on an Exelon patch 9.5 mg daily. She is on potassium 20 mEq daily, Protonix 40 mg daily, Synthroid 75 mcg daily, Florajen 460 mg daily, furosemide 20 mg b.i.d., Niferex 1 cap daily, B12 1000 mcg daily, vitamin D 1000 units daily, allopurinol 300 mg daily. She is on tramadol for pain, temazepam 30 mg q.h.s. p.r.n. insomnia, Betapace 80 mg b.i.d., Phenergan 25 mg q.8 hours p.r.n. nausea and vomiting, polyethylene glycol 17 grams in 8 ounces of water daily, Zofran 4 mg q.4 hours p.r.n. nausea and vomiting, Ocuflox eye drops b.i.d., nystatin powder to apply b.i.d., lisinopril 20 mg b.i.d., Atrovent nasal spray 2 sprays t.i.d. She is on Mucinex 600 mg b.i.d., Vibramycin 100 mg b.i.d., Eliquis 2.5 mg b.i.d., and Tylenol as needed. HABITS: No alcohol or tobacco use. FAMILY HISTORY: Noncontributory. SOCIAL HISTORY: The patient once again hopefully will be able to return home at HISTORY AND PHYSICAL [id number] JARRELL HARRELL some point. REVIEW OF SYSTEMS: GENERAL: Does complain of weakness. HEENT: She denies cold, cough, or congestion. CARDIOVASCULAR: Denies chest pain. LUNGS: Without shortness of breath. PHYSICAL EXAMINATION: VITAL SIGNS: Stable, afebrile. GENERAL: Elderly female in no distress, alert, but somewhat confused. HEENT: Normocephalic and atraumatic. Mucosa moist. NECK: Supple. No lymphadenopathy. LUNGS: Clear in upper corrigan. HEART: Irregular rate and rhythm. ABDOMEN: Benign. EXTREMITIES: No clubbing, cyanosis or edema. NEUROLOGIC: Definitely consistent with dementia. LABORATORY DATA: Her white count is 7.4, H&H of 13 and 41 and platelet count is noted to be 316. Her sodium is 135, potassium 4.3, BUN and creatinine of 24 and 1.2, and blood sugar is noted to be 86. ASSESSMENT: This is an 81-year-old female patient admitted to rehab with a working diagnosis of debility secondary to malnutrition and diarrhea. The patient has potential to make improvement. We instituted the following multidisciplinary therapies including to, but not limited to physical, occupational, respiratory, speech, nutritional services, prosthetics and orthotics. Given her complex condition and risk for more complications, rehabilitation services cannot be provided at a low level of care such as a penitentiary facility. PLAN: 1. Admit to [facility] rehab for intensive inpatient therapy to include the following disciplines: A. Physical therapy to improve gait, all transfer skills and bed mobility to a modified independent level. B. Occupational therapy to improve activities of daily living to a modified independent level. C. Case management to assist with discharge planning and placement options. D. Nutrition to assist with nutritional needs. E. Rehabilitation nursing to assist in monitoring the patient's underlying medical conditions and to assist with any type of bowel or bladder management. 2. The patient's current medications and medical care will be continued. 3. The patient will be placed on standard fall precautions. 4. The patient's estimated length of stay is approximately 7-10 days. 5. Discuss this patient during care team staff meeting this week. We will watch for any more signs of diarrhea and address this as needed. TRANSINT:[id number] Voice Confirmation ID: [id number] DOCUMENT ID: [id number] SHEREEN notes whether there has been none or any medical/functional change since admission: - No change since prescreen. HISTORY AND PHYSICAL [id number] JARRELL HARRELL attests patient continues to be appropriate for IRF: - Continues to be appropriate. CAROLYN MACE MD at [id number] CC: [id number] DICTATION DATE: 05/09/17 0937 LAPIDARY APPRENTICE: 05/09/17 1049 ADM IN [facility] [address] [place] [address]
--- NOTE | 2017-05-25 09:53 | NUR ---
DR. Joaquin MACE INTO SEE PATIENT. NEW ORDERS TO DISCHARGE TO HOME TODAY.
[2017-05-25 09:56] VITALS: BP 149/51
--- NOTE | 2017-05-25 10:34 | NUR ---
MEDICATIONS ORDERED FOR DISCHARGE CALLED INTO [facility]. CALLED INTO JOHANNE BYERS.
--- NOTE | 2017-05-25 11:29 | NUR ---
TECHNICAL ADMINISTRATIVE ASSISTANT NOTIFIED AND TELEMETRY REMOVED. MIDLINE REMOVED FROM RIGHT UPPER ARM WITHOUT DIFFICULTY.
--- NOTE | 2017-05-25 13:18 | NUR ---
PRN PAIN MEDICATION GIVEN FOR BACK PAIN PER PATIENT REQUEST
--- NOTE | 2017-05-25 14:05 | NUR ---
DISCHARGE INSTRUCTIONS GIVEN TO PATIENT ET . [employer] HERE TO DELIEVER WHEELCHAIR AND GAIT BELT.
--- NOTE | 2017-05-25 14:46 | NUR ---
PATIENT HELPED OUT TO CAR BY STAFF.
== END 2017-05-25 14:46 | disposition home health service (06) | DRG 948 ==
LOC: D.REHAB 16:13
PROVIDERS: ADMIT Emergency Medicine
PROC: 05HB33Z Insertion of Infusion Device into Right Basilic Vein, Percutaneous Approach (ICD-10-PCS; principal; 2017-05-13)
PROC: B54MZZA Ultrasonography of Right Upper Extremity Veins, Guidance (ICD-10-PCS; 2017-05-13)
DX: R53.81 Other malaise (principal); J90 Pleural effusion, not elsewhere classified; J98.11 Atelectasis; E46 Unspecified protein-calorie malnutrition; I50.32 Chronic diastolic (congestive) heart failure; I51.7 Cardiomegaly; I48.91 Unspecified atrial fibrillation; R55 Syncope and collapse; N28.9 Disorder of kidney and ureter, unspecified; R19.7 Diarrhea, unspecified; E86.0 Dehydration; R11.2 Nausea with vomiting, unspecified; Z95.0 Presence of cardiac pacemaker; E87.6 Hypokalemia